=== PATIENT | male | born 1945 | race Caucasian/White ===

== ENCOUNTER → 2016-06-04 | Outpatient (CLI) | payer OTHER ==
[2016-06-04 12:49] LABS: HEMATOCRIT 47.3 % (42-52); MEAN CELL VOLUME 89.6 fL (80-100); MEAN CORPUSCULAR HEMOGLOBIN 30.7 pg (25-34); MEAN CORPUSCULAR HGB CONC 34.2 g/dl (32-36); MEAN PLATELET VOLUME 9.6 fL (7.4-10.4); PLATELET COUNT 248 K/uL (130-400); RED BLOOD COUNT 5.28 M/uL (4.7-6.1); WHITE BLOOD COUNT 6.69 K/uL (4.8-10.8)
[2016-06-04 13:05] LABS: ESTIMATED AVERAGE GLUCOSE 114 mg/dl; HA1C FLAG Normal (Normal)
[2016-06-04 13:19] LABS: ALT/SGPT 25 U/L (12-78); AST/SGOT 16 U/L (15-37); BLOOD UREA NITROGEN 16 mg/dl (7-18); BUN/CREATININE RATIO 14.2 (10-20); CALCIUM 8.8 mg/dl (8.5-10.1); CARBON DIOXIDE 25 mmol/L (21-32); CHLORIDE 108 mmol/L (98-107); GLUCOSE 94 mg/dl (70-99); MAGNESIUM 2.5 mg/dl (1.8-2.4); POTASSIUM 3.9 mmol/L (3.5-5.1); SODIUM 142 mmol/L (136-145)
[2016-06-04 13:26] LABS: ALB/GLOB RATIO 1.3 (0.9-2); ALKALINE PHOSPHATASE 92 U/L (45-117); CHOLESTEROL 204 mg/dl (0-200); CHOLESTEROL/HDL RATIO 4.7; HDL CHOLESTEROL 43 mg/dl; TRIGLYCERIDES 160 mg/dl (0-150); VERY LOW DENSITY LIPOPROT CALC 32 mg/dl
== END | disposition home or self-care (01) ==
LOC: C.LABPBG 08:29
PROVIDERS: ATTEND Internal Medicine Cardiovascular Disease
DX: R07.9 Chest pain, unspecified (principal); I10 Essential (primary) hypertension; E78.5 Hyperlipidemia, unspecified; Z79.899 Other long term (current) drug therapy

== ENCOUNTER → 2016-07-17 | Outpatient (CLI) | payer OTHER ==
[2016-07-17 12:26] LABS: BASO % 0.5 %; BASO ABS # 0.04 K/uL (0-0.2); COMPLETE YES; EOS % 1.9 %; HEMATOCRIT 48.4 % (42-52); IG% 0.3 %; LYMPH % 30.4 %; LYMPH ABS # 2.35 K/uL (1.2-3.4); MEAN CELL VOLUME 91.3 fL (80-100); MEAN CORPUSCULAR HEMOGLOBIN 31.7 pg (25-34); MEAN CORPUSCULAR HGB CONC 34.7 g/dl (32-36); MEAN PLATELET VOLUME 10.5 fL (7.4-10.4); MONO % 6.6 %; NEUT % 60.3 %; PLATELET COUNT 259 K/uL (130-400); WHITE BLOOD COUNT 7.73 K/uL (4.8-10.8)
[2016-07-17 12:33] LABS: PARTIAL THROMBOPLASTIN RATIO 1.1; PROTHROMBIN TIME (PATIENT) 10.7 SECONDS (9.0-12.0)
[2016-07-17 13:05] LABS: BLOOD UREA NITROGEN 17 mg/dl (7-18); BUN/CREATININE RATIO 15.5 (10-20); CALCIUM 9.5 mg/dl (8.5-10.1); CARBON DIOXIDE 27 mmol/L (21-32); CHLORIDE 108 mmol/L (98-107); GLUCOSE 109 mg/dl (70-99); POTASSIUM 4.4 mmol/L (3.5-5.1); SODIUM 142 mmol/L (136-145)
== END | disposition home or self-care (01) ==
LOC: C.LABPBG 09:32
PROVIDERS: ATTEND Internal Medicine Cardiovascular Disease
DX: R07.9 Chest pain, unspecified (principal); R00.2 Palpitations; I10 Essential (primary) hypertension; E78.5 Hyperlipidemia, unspecified; Z79.899 Other long term (current) drug therapy

== ENCOUNTER → 2017-06-12 | Outpatient (CLI) | payer OTHER ==
[2017-06-12 12:29] LABS: HEMATOCRIT 48.1 % (42-52); HEMOGLOBIN 16.5 g/dL (14.0-18.0); MEAN CELL VOLUME 91.4 fL (80-100); MEAN CORPUSCULAR HEMOGLOBIN 31.4 pg (25-34); MEAN CORPUSCULAR HGB CONC 34.3 g/dl (32-36); MEAN PLATELET VOLUME 10.1 fL (7.4-10.4); PLATELET COUNT 253 K/uL (130-400); RED CELL DISTRIBUTION WIDTH CV 13.4 % (11.5-14.5); RED CELL DISTRIBUTION WIDTH SD 44.7 fL (36.4-46.3)
[2017-06-12 13:03] LABS: HEMOGLOBIN A1C 5.7 % (4.5-5.6)
[2017-06-12 13:19] LABS: AST/SGOT 21 U/L (15-37); BLOOD UREA NITROGEN 17 mg/dl (7-18); CALCIUM 9.2 mg/dl (8.5-10.1); CARBON DIOXIDE 26 mmol/L (21-32); CREATININE 1.18 mg/dl (0.60-1.40); GLUCOSE,FASTING 102 mg/dl (70-99); POTASSIUM 4.3 mmol/L (3.5-5.1); SODIUM 139 mmol/L (136-145)
[2017-06-12 13:27] LABS: ALKALINE PHOSPHATASE 93 U/L (45-117); ALT/SGPT 26 U/L (12-78); CHOLESTEROL 222 mg/dl (0-200); LDL CHOLESTEROL (DIRECT) 156 mg/dl; TOTAL PROTEIN 7.5 gm/dl (6.4-8.2)
== END | disposition home or self-care (01) ==
LOC: C.LABPBG 08:04
PROVIDERS: ATTEND Internal Medicine Cardiovascular Disease
DX: Z79.899 Other long term (current) drug therapy (principal); I10 Essential (primary) hypertension; E78.5 Hyperlipidemia, unspecified

== ENCOUNTER 2022-07-10 11:41 | Observation (INO) ==
--- NOTE | 2022-07-10 12:01 | XRay Report ---
XR chest 1V portable HISTORY: 76 years-old Male Chest pain, nonspecific acute chest pain COMPARISON: None TECHNIQUE: AP view of the chest FINDINGS: Cardiac silhouette is enlarged. Prior median sternotomy with cardiac valvular prosthesis and atrial e xclusion device. Left subclavian pacer. No pneumothorax, pleural effusion, airspace consolidation or pulmonary edema. Bones appear grossly intact. IMPRESSION: Cardiomegaly without acute process. ACT 112: Negative or not required by law. The above report was generated using voice recognition software. It may contain grammatical, syntax o r spelling errors. Electronically signed by: Joe Cano M.D. 07/10/2022 12:00 PM
[2022-07-10] MEDS ORDERED: SODIUM CHLORIDE 0.9% 1000ML 1,000 ML IV ONE (12:03)
[2022-07-10 12:26] LABS: Basophils # (auto) 0.07 K/uL (0-0.2); Basophils % (auto) 0.8 %; Eosinophils # (auto) 0.04 K/uL (0-0.50); Eosinophils % (auto) 0.5 %; Hematocrit (blood only) 46.8 % (42.0-52.0); Hemoglobin 15.8 g/dl (14.0-18.0); Immature Granulocytes # (auto) 0.03 K/uL (0.01-0.20); Immature Granulocytes % (auto) 0.3 %; Lymphocytes # (auto) 2.12 K/uL (1.2-3.4); Lymphocytes % (auto) 24.5 %; Mean Corpuscular Hemoglobin 30.6 pg (25.0-34.0); Mean Corpuscular Hgb Conc 33.8 g/dL (32.0-36.0); Mean Corpuscular Volume 90.5 fL (80.0-100.0); Mean Platelet Volume 9.2 fL (9.4-12.4); Monocytes # (auto) 0.47 K/uL (0.11-0.59); Monocytes % (auto) 5.4 %; Neutrophils # (auto) 5.94 K/uL (1.40-6.50); Neutrophils % (auto) 68.5 %; Platelet Count 225 K/uL (130-400); RDW Coefficient of Variation 12.9 % (11.5-14.5); Red Blood Count 5.17 M/uL (4.70-6.10); White Blood Count 8.67 K/ul (4.8-10.8)
[2022-07-10 12:29] LABS: Appearance Urine Clear (Clear); Bilirubin Urine Negative (Negative); Blood Urine Negative (Negative); Color Urine Yellow; Glucose Urine UA Negative (Negative); Ketones Urine Negative (Negative); Leukocyte Esterase Urine Negative (Negative); Nitrite Urine Negative (Negative); Protein Urine Negative (Negative); Specific Gravity Urine 1.007 (1.000-1.030); Urobilinogen Urine Negative (Negative)
[2022-07-10 12:39] LABS: Prothrombin Time 11.1 Seconds (9.0-12.0)
[2022-07-10] MEDS ORDERED: METOPROLOL TARTRATE 1 MG/ML VIAL IV STA ×3 (12:49→14:53)
[2022-07-10 12:55] LABS: Albumin Level 4.5 gm/dl (3.4-5.0); Bilirubin,Total 0.9 mg/dl (0.2-1.0); Calcium 9.7 mg/dl (8.6-10.3); Potassium 4.4 mmol/L (3.5-5.1)
[2022-07-10 13:01] LABS: Albumin Globulin Ratio 1.6 (0.9-2); BUN Creatinine Ratio 13.7 (10-20); Creatinine Clr Calc Pharmacy 52.3 ml/min; Est GFR (Non-African American) 56.1 ml/min; Globulin 2.8 gm/dl (2.5-4.0); Phosphorus 2.1 mg/dl (2.5-4.9); Total Protein 7.3 gm/dl (6.0-8.3)
[2022-07-10 13:05] LABS: Troponin I High Sensitivity 34.3 pg/ml (0-20)
--- NOTE | 2022-07-10 13:53 | Electrocardiogram Report ---
Test Reason : Blood Pressure : / mmHG Vent. Rate : 138 BPM Atrial Rate : 138 BPM P-R Int : 112 ms QRS Dur : 140 ms QT Int : 304 ms P-R-T Axes : 269 -80 087 degrees QTc Int : 460 ms Atrial-sensed ventricular-paced rhythm Abnormal ECG No previous ECGs available Confirmed by Gael Santamaria ([id number]) on 07/10/2022 1:53:34 PM Referred By: Confirmed By:Gael Santamaria
--- NOTE | 2022-07-10 14:43 | Emergency Department Note ---
Impression & Plan Atrial fibrillation with RVR, Pacemaker, Paroxysmal atrial fibrillation ED Provider Note NAME: ASHLEY PEÑA AGE: 76 SEX: M ARRIVES VIA: Ambulance INFORMANT: Patient ED PROVIDER(S): Silvio Holland MD CHIEF COMPLAINT: Fast heart rate, referred PLAN: Disposition: Admit MEDICAL DECISION MAKING: The patient is a pleasant 76-year-old gentleman with a past medical history of paroxysmal atrial fibrillation, complete heart block status post PPM, aortic valve replacement, CAD with history of CABG x3, hypertension, hyperlipidemia who presents to the emergency department via EMS for evaluation of tachycardia referred by his [employer] insurance RN from a well visit today. The patient reports that he recently was told the results of an outpatient echocardiogram which commented on worsening valvular disease and was told that this can be due to hypertension at times. Thus, since then he has been monitoring his blood pressure and in this process noticed that his heart rate was elevated in the 130s. The patient denied any particular symptoms including headache, lightheadedness, changes in vision or hearing, chest pain or shortness of breath. He knew he had a well visit from [facility] in today and so decided to wait until today for reevaluation thinking it would resolve. Otherwise he denies fevers, cough, congestion, GI or symptoms. He reports he feels as though he is hydrating enough. On arrival the patient is well-appearing in no acute distress, afebrile with heart in the 130s, blood pressure 150s/100s and vital signs otherwise stable. He does appear clinically dry. EKG demonstrates atrial sensed, ventricular paced rhythm at 138 with suspicion of underlying atrial fib/flutter. No ectopy, no overt acute ischemia. Chest x- ray negative for acute cardiopulmonary process. WBC, H/H, and platelets within normal limits. Chemistry without metabolic acidosis. Electrolytes and LFTs without significant abnormality. High- sensitivity troponin 34.3 with repeat high-sensitivity troponin 40, essentially unchanged and nonspecific. Lipase is not elevated. TSH within normal limits. UA without evidence of infection. COVID-19 RNA, KENNEY test was negative. Interrogation of the patient's [employer] PPM was completed. I did review the report with the [employer] power plant technician over the phone. Appears the patient is in atrial fibrillation approximately 2% of the time. His tachycardia yesterday and today is consistent with underlying atrial fibrillation with RVR. Otherwise he notes that the patient has approximately 5 years of battery life left with its current settings but could be optimized and extend battery life up to 10 years which can be performed outpatient or inpatient if he is admitted. Upon reevaluation the patient continues deny any symptoms. However his heart rate had only improved to the mid 120s after 5 mg of IV Lopressor x3. Did discuss the patient's current medications with the patient and his son at the bedside. He is unclear about when he may have been taken off of metoprolol but does not recall this medication specifically. He recalls that he was taken off of Eliquis sometime ago which per records appears to be related to the no longer having episodes of atrial fibrillation following left atrial appendage clipping in December 2020. Given the persistence of the patient's RVR despite 3 doses of IV Lopressor and IV fluid hydration the patient and his son agree with plan for admission for further management. Case was discussed with Dr. Pollock, [facility] hospitalist, who will evaluate the patient for admission. Triage Nursing notes reviewed and agree them. Prior/outside medical records reviewed Vital Signs: reviewed Differential diagnosis: Premature contractions, electrolyte abnormality, cardiac dysrhythmia, thyroid dysfunction, pulmonary embolism, infection, gastrointestinal, as well as other pathologies. ER treatment provided: See below. Diagnostics interpreted by me: ECG: Atrial sensed, ventricular paced rhythm at 138 with suspicion of underlying atrial fibs/flutter. No ectopy, no overt acute ischemia. Cardiac Monitoring: An order for continuous cardiac monitoring was placed and demonstrated Atrial sensed, ventricular paced rhythm at 138 with suspicion of underlying atrial fibs/flutter. No ectopy. Laboratory studies: See below Imaging studies: See below Consultation(s): Case was discussed with Dr. Pollock, [facility] hospitalist, who will evaluate the patient for admission. HPI: The patient is a pleasant 76-year-old gentleman with a past medical history of paroxysmal atrial fibrillation, complete heart block status post PPM, aortic valve replacement, CAD with history of CABG x3, hypertension, hyperlipidemia who presents to the emergency department via EMS for evaluation of tachycardia referred by his Addie reed RN from a well visit today. The patient reports that he recently was told the results of an outpatient echocardiogram which commented on worsening valvular disease and was told that this can be due to hypertension at times. Thus, since then he has been monitoring his blood pressure and in this process noticed that his heart rate was elevated in the 130s. The patient denied any particular symptoms including headache, lightheadedness, changes in vision or hearing, chest pain or shortness of breath. He knew he had a well visit from [facility] in today and so decided to wait until today for reevaluation thinking it would resolve. Otherwise he denies fevers, cough, congestion, GI or symptoms. He reports he feels as though he is hydrating enough. ROS: See above HPI for pertinent positives & negatives. A total of 10 systems reviewed and were otherwise negative. VITALS:See Below PHYSICAL EXAMINATION: GENERAL: Awake, alert, well-appearing, in no distress HENT: Normocephalic, atraumatic. Oropharynx with dry mucous membranes and otherwise unremarkable. EYES: Normal conjunctiva. Sclera non-icteric. NECK: Supple. No nuchal rigidity. FROM. No JVD. RESPIRATORY: Clear to auscultation. CARDIAC: Tachycardic rate, regular rhythm. Extremities warm and well perfused. Pulses equal. ABDOMEN: Soft, non-distended. No tenderness to palpation. No rebound or guardin g. No masses. RECTAL: Deferred. MUSCULOSKELETAL: Chest examination reveals no tenderness. The back is symmetrical on inspection without obvious abnormality. There is no CVA tenderness to palpation. No joint edema. LOWER EXTREMITIES: Calves are equal size bilaterally and non-tender. No edema. No discoloration. NEURO: Normal sensorium. No sensory or motor deficits noted. SKIN: No rash or jaundice noted. ED COURSE: Critical Care: I have personally spent greater than 35 minutes of critical care time in the direct management of this patient. This includes bedside care, interpretation of diagnostic studies, and testing, discussion with consultants, patient, and family members, and other required patient management activities. This 35 minutes is in excess of all separately billable procedures. Silvio Holland MD Past Med/Surg History Medical History Aortic stenosis Bicuspid aortic valve History of COPD HTN (hypertension), benign MCI (mild cognitive impairment) Nephrolithiasis Non-occlusive coronary artery disease Pulmonary hypertension, moderate to severe Surgical History History of aortic valve replacement History of back surgery 1989 History of coronary artery bypass graft Hx of abdominal surgery Removal of adhesions on small intestine Hx of heart surgery Cardiac catheterization-2013 S/P cystoscopy With insertion of Ureteral Stent-1984 S/P hernia repair 1964 Family History Father , age 73 Myocardial infarction, Onset Age: 68 Cardiac disorder Hypertension Mother , age 97 Hypertension Breast cancer, Onset Age: 50 Denies family history of Ovarian cancer Prostate cancer Lung cancer Colorectal cancer Social History Smoking Status: Former smoker Tobacco Type: Cigarettes Age Started Using Tobacco: 16; Second Hand Exposure: No; Hx Alcohol Use: Yes Hx Substance Use: No Preferred Language: Japanese Visual Impairment: No Limitations Hearing Ability: Normal Beliefs That Will Affect Care: None marital status: Current Living Situation: Spouse current occupational status: retired Feels Safe at Home: Yes Childhood Exposure to Second-Hand Smoke: No Diet Comment: regular caffeine: Yes during the past year weight has: remained stable Dental Care, Regularly: No Physical Activity Frequency: Daily 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 Seatbelt Use: never Sunscreen Use: No Allergies Allergies Allergy/AdvReac Type Severity Reaction Status Date / Time atorvastatin [From Lipitor] AdvReac Intermediate Myalgia Verified 07/10/22 13:41 pravastatin [From Pravachol] AdvReac Intermediate Myalgia Verified 07/10/22 13:41 rosuvastatin [From Crestor] AdvReac Intermediate Myalgia Verified 07/10/22 13:41 Home Meds Home Medications Medication Instructions Recorded Confirmed diphenhydramine 25 1 tab PO DIRECTED PRN Pain 07/10/22 07/10/22 mg-acetaminophen 500 mg tablet (Tylenol PM Extra Strength) pravastatin 20 mg tablet 20 mg PO DIRECTED 07/10/22 07/10/22 Previous Rx's Medication Instructions Recorded amlodipine 5 mg tablet 5 mg PO DAILY #90 tabs 07/26/21 losartan 100 mg tablet 100 mg PO DAILY #90 tabs 07/26/21 buspirone 10 mg tablet 5 - 10 mg PO TID PRN anxiety #60 12/18/21 tabs Cock-Up Wrist Splint #2 ea 03/25/22 meloxicam 7.5 mg tablet 7.5 mg PO DAILY #30 tabs 06/10/22 Results & Data (ED) Vital Signs Vital Signs - 24 hr 07/10/22 12:11 07/10/22 12:31 07/10/22 11:46 Temperature 36.4 C L 36.4 C L Temperature Source Oral Oral Pulse Rate 137 H 138 H Pulse Rate [Apical] 138 H Respiratory Rate 20 16 20 Respiratory Effort / Characteristics Non-Labored Spontaneous Non-Labored Spontaneous Respiratory Depth Respiratory Pattern Regular Regular Blood Pressure 153/103 H Blood Pressure [Right Arm] 153/103 H Blood Pressure Mean 119 Blood Pressure Mean [Right Arm] 119 Blood Pressure Position [Right Arm] Pulse Oximetry 98 95 96 Oxygen Delivery Method Room Air Room Air Room Air Sepsis Recent Fever Within 48 Hours No Sepsis New/Unexplained Change in Mental Status N/A Sepsis Action Taken by Nursing No Action Required 07/10/22 12:20 07/10/22 12:54 07/10/22 13:23 Temperature Temperature Source Pulse Rate 137 H Pulse Rate [Apical] 139 H 129 H Respiratory Rate 19 15 Respiratory Effort / Characteristics Non-Labored Spontaneous Respiratory Depth Respiratory Pattern Regular Blood Pressure Blood Pressure [Right Arm] 145/110 H 134/101 H Blood Pressure Mean Blood Pressure Mean [Right Arm] 121 112 Blood Pressure Position [Right Arm] Semi-fowlers Semi-fowlers Pulse Oximetry 97 96 Oxygen Delivery Method Room Air Sepsis Recent Fever Within 48 Hours Sepsis New/Unexplained Change in Mental Status Sepsis Action Taken by Nursing 07/10/22 14:15 07/10/22 15:00 07/10/22 16:19 Temperature Temperature Source Pulse Rate 126 H Pulse Rate [Apical] 127 H 126 H Respiratory Rate 16 12 Respiratory Effort / Characteristics Non-Labored Spontaneous Non-Labored Spontaneous Respiratory Depth Normal Respiratory Pattern Regular Blood Pressure Blood Pressure [Right Arm] 136/100 133/100 Blood Pressure Mean Blood Pressure Mean [Right Arm] 112 111 Blood Pressure Position [Right Arm] Semi-fowlers Semi-fowlers Pulse Oximetry 96 93 Oxygen Delivery Method Room Air Room Air Sepsis Recent Fever Within 48 Hours Sepsis New/Unexplained Change in Mental Status Sepsis Action Taken by Nursing Laboratory Data Attestation: I reviewed the patient's lab results. 07/10/22 11:57 07/10/22 11:57 Lab Results 07/10/22 07/10/22 07/10/22 Range/Units 11:57 11:57 11:57 WBC 8.67 (4.8-10.8) K/ul RBC 5.17 (4.70-6.10) M/uL Hgb 15.8 (14.0-18.0) g/dl Hct 46.8 (42.0-52.0) % MCV 90.5 (80.0-100.0) fL MCH 30.6 (25.0-34.0) pg MCHC 33.8 (32.0-36.0) g/dL RDW Std Deviation 43.0 (36.4-46.3) fL RDW Coeff of [place] 12.9 (11.5-14.5) % Plt Count 225 (130-400) K/uL MPV 9.2 L (9.4-12.4) fL Immature Gran % (Auto) 0.3 % Neut % (Auto) 68.5 % Lymph % (Auto) 24.5 % Stevens % (Auto) 5.4 % Eos % (Auto) 0.5 % Baso % (Auto) 0.8 % Neut # (Auto) 5.94 (1.40-6.50) K/uL Lymph # (Auto) 2.12 (1.2-3.4) K/uL Stevens # (Auto) 0.47 (0.11-0.59) K/uL Eos # (Auto) 0.04 (0-0.50) K/uL Baso # (Auto) 0.07 (0-0.2) K/uL Immature Gran # (Auto) 0.03 (0.01-0.20) K/uL PT (9.0-12.0) Seconds INR (0.9-1.1) Sodium 140 (136-145) mmol/L Potassium 4.4 (3.5-5.1) mmol/L Chloride 109 H (98-107) mmol/L Carbon Dioxide 24 (21-32) mmol/L Anion Gap 7 (3-11) BUN 17 (6-23) mg/dl Creatinine 1.24 (0.6-1.4) mg/dl Est Cr Clr Drug Dosing 52.3 ml/min Est GFR ( Amer) 65.0 ml/min Est GFR (Non-Af Amer) 56.1 ml/min BUN/Creatinine Ratio 13.7 (10-20) Glucose 101 H (70-99(Fasting)) mg/dl Calcium 9.7 (8.6-10.3) mg/dl Phosphorus 2.1 L (2.5-4.9) mg/dl Magnesium 2.0 (1.7-2.4) mg/dl Total Bilirubin 0.9 (0.2-1.0) mg/dl AST 21 (13-39) U/L ALT 16 (7-52) U/L Alkaline Phosphatase 89 (34-104) U/L Troponin I High Sens 34.3 H (0-20) pg/ml Total Protein 7.3 (6.0-8.3) gm/dl Albumin 4.5 (3.4-5.0) gm/dl Globulin 2.8 (2.5-4.0) gm/dl Albumin/Globulin Ratio 1.6 (0.9-2) Lipase 56 (11-82) U/L TSH 2.590 (0.300-4.500) uIu/ml Urine Color Urine Appearance (Clear) Urine pH (4.5-7.5) Ur Specific [place] (1.000-1.030) Urine Protein (Negative) Urine Glucose (UA) (Negative) Urine Ketones (Negative) Urine Blood (Negative) Urine Nitrite (Negative) Urine Bilirubin (Negative) Urine Urobilinogen (Negative) Ur Leukocyte Esterase (Negative) SARS-CoV-2, RNA, NAAT (NEGATIVE) 07/10/22 07/10/22 07/10/22 Range/Units 11:57 12:07 12:15 WBC (4.8-10.8) K/ul RBC (4.70-6.10) M/uL Hgb (14.0-18.0) g/dl Hct (42.0-52.0) % MCV (80.0-100.0) fL MCH (25.0-34.0) pg MCHC (32.0-36.0) g/dL RDW Std Deviation (36.4-46.3) fL RDW Coeff of [place] (11.5-14.5) % Plt Count (130-400) K/uL MPV (9.4-12.4) fL Immature Gran % (Auto) % Neut % (Auto) % Lymph % (Auto) % Stevens % (Auto) % Eos % (Auto) % Baso % (Auto) % Neut # (Auto) (1.40-6.50) K/uL Lymph # (Auto) (1.2-3.4) K/uL Stevens # (Auto) (0.11-0.59) K/uL Eos # (Auto) (0-0.50) K/uL Baso # (Auto) (0-0.2) K/uL Immature Gran # (Auto) (0.01-0.20) K/uL PT 11.1 (9.0-12.0) Seconds INR 1.0 (0.9-1.1) Sodium (136-145) mmol/L Potassium (3.5-5.1) mmol/L Chloride (98-107) mmol/L Carbon Dioxide (21-32) mmol/L Anion Gap (3-11) BUN (6-23) mg/dl Creatinine (0.6-1.4) mg/dl Est Cr Clr Drug Dosing ml/min Est GFR ( Amer) ml/min Est GFR (Non-Af Amer) ml/min BUN/Creatinine Ratio (10-20) Glucose (70-99(Fasting)) mg/dl Calcium (8.6-10.3) mg/dl Phosphorus (2.5-4.9) mg/dl Magnesium (1.7-2.4) mg/dl Total Bilirubin (0.2-1.0) mg/dl AST (13-39) U/L ALT (7-52) U/L Alkaline Phosphatase (34-104) U/L Troponin I High Sens (0-20) pg/ml Total Protein (6.0-8.3) gm/dl Albumin (3.4-5.0) gm/dl Globulin (2.5-4.0) gm/dl Albumin/Globulin Ratio (0.9-2) Lipase (11-82) U/L TSH (0.300-4.500) uIu/ml Urine Color Yellow Urine Appearance Clear (Clear) Urine pH 7.0 (4.5-7.5) Ur Specific [place] 1.007 (1.000-1.030) Urine Protein Negative (Negative) Urine Glucose (UA) Negative (Negative) Urine Ketones Negative (Negative) Urine Blood Negative (Negative) Urine Nitrite Negative (Negative) Urine Bilirubin Negative (Negative) Urine Urobilinogen Negative (Negative) Ur Leukocyte Esterase Negative (Negative) SARS-CoV-2, RNA, NAAT NEGATIVE (NEGATIVE) 07/10/22 Range/Units 15:28 WBC (4.8-10.8) K/ul RBC (4.70-6.10) M/uL Hgb (14.0-18.0) g/dl Hct (42.0-52.0) % MCV (80.0-100.0) fL MCH (25.0-34.0) pg MCHC (32.0-36.0) g/dL RDW Std Deviation (36.4-46.3) fL RDW Coeff of [place] (11.5-14.5) % Plt Count (130-400) K/uL MPV (9.4-12.4) fL Immature Gran % (Auto) % Neut % (Auto) % Lymph % (Auto) % Stevens % (Auto) % Eos % (Auto) % Baso % (Auto) % Neut # (Auto) (1.40-6.50) K/uL Lymph # (Auto) (1.2-3.4) K/uL Stevens # (Auto) (0.11-0.59) K/uL Eos # (Auto) (0-0.50) K/uL Baso # (Auto) (0-0.2) K/uL Immature Gran # (Auto) (0.01-0.20) K/uL PT (9.0-12.0) Seconds INR (0.9-1.1) Sodium (136-145) mmol/L Potassium (3.5-5.1) mmol/L Chloride (98-107) mmol/L Carbon Dioxide (21-32) mmol/L Anion Gap (3-11) BUN (6-23) mg/dl Creatinine (0.6-1.4) mg/dl Est Cr Clr Drug Dosing ml/min Est GFR ( Amer) ml/min Est GFR (Non-Af Amer) ml/min BUN/Creatinine Ratio (10-20) Glucose (70-99(Fasting)) mg/dl Calcium (8.6-10.3) mg/dl Phosphorus (2.5-4.9) mg/dl Magnesium (1.7-2.4) mg/dl Total Bilirubin (0.2-1.0) mg/dl AST (13-39) U/L ALT (7-52) U/L Alkaline Phosphatase (34-104) U/L Troponin I High Sens 40.9 H (0-20) pg/ml Total Protein (6.0-8.3) gm/dl Albumin (3.4-5.0) gm/dl Globulin (2.5-4.0) gm/dl Albumin/Globulin Ratio (0.9-2) Lipase (11-82) U/L TSH (0.300-4.500) uIu/ml Urine Color Urine Appearance (Clear) Urine pH (4.5-7.5) Ur Specific [place] (1.000-1.030) Urine Protein (Negative) Urine Glucose (UA) (Negative) Urine Ketones (Negative) Urine Blood (Negative) Urine Nitrite (Negative) Urine Bilirubin (Negative) Urine Urobilinogen (Negative) Ur Leukocyte Esterase (Negative) SARS-CoV-2, RNA, NAAT (NEGATIVE) Administered Medications Discontinued Medications Sodium Chloride (Nss 1000ml) 1,000 mls @ 999 mls/hr IV .[id number] ONE Stop: 07/10/22 13:03 Last Infusion: 07/10/22 13:22 Dose: 0 mls/hr Documented By: Admin: 07/10/22 12:17 Dose: 999 mls/hr Documented By: AB Metoprolol Tartrate (Metoprolol Tartrate 1 Mg/Ml Vial) 5 mg IV NOW STA Stop: 07/10/22 12:50 Last Admin: 07/10/22 12:54 Dose: 5 mg Documented By: Metoprolol Tartrate (Metoprolol Tartrate 1 Mg/Ml Vial) 5 mg IV NOW STA Stop: 07/10/22 14:10 Last Admin: 07/10/22 14:22 Dose: 5 mg Documented By: Metoprolol Tartrate (Metoprolol Tartrate 1 Mg/Ml Vial) 5 mg IV NOW STA Stop: 07/10/22 14:54 Last Admin: 07/10/22 15:10 Dose: 5 mg Documented By: Imaging Data Radiologist's Impression: Chest X-Ray 07/10/22 11:49 XR chest 1V portable HISTORY: 76 years-old Male Chest pain, nonspecific acute chest pain COMPARISON: None TECHNIQUE: AP view of the chest FINDINGS: Cardiac silhouette is enlarged. Prior median sternotomy with cardiac valvular prosthesis and atrial exclusion device. Left subclavian pacer. No pneumothorax, pleural effusion, airspace consolidation or pulmonary edema. Bones appear grossly intact. IMPRESSION: Cardiomegaly without acute process. ACT 112: Negative or not required by law. The above report was generated using voice recognition software. It may contain grammatical, syntax or spelling errors. Electronically signed by: Joe Cano M.D. 07/10/2022 12:00 PM Discharge Plan Visit Data Chief Complaint: Arrhythmia/Palpitations Stated Complaint: PALPITATIONS ED Provider: Silvio Holland Discharge Problem: Atrial fibrillation with RVR, Pacemaker, Paroxysmal atrial fibrillation Forms Stand Alone Forms: [facility] [employer] Prescriptions Prescriptions: No Action buspirone 10 mg tablet 5 - 10 mg PO TID PRN (Reason: anxiety) Qty: 60 2RF meloxicam 7.5 mg tablet 7.5 mg PO DAILY Qty: 30 2RF (DME) Cock-Up Wrist Splint Misc See Rx Instructions .ROUTE .MEDSUPPLY Qty: 2 0RF Rx Instructions: As directed losartan 100 mg tablet 100 mg PO DAILY Qty: 90 3RF amlodipine 5 mg tablet 5 mg PO DAILY Qty: 90 3RF pravastatin 20 mg tablet 20 mg PO DIRECTED Rx Instructions: PER PT "CAN'T TOLERATE TAKING, USE RARELY". diphenhydramine-acetaminophen [Tylenol PM Extra Strength] 25-500 mg Tablet 1 tab PO DIRECTED PRN (Reason: Pain) Referrals Referrals: Israel Lovett MD [Primary Care Provider] -
--- NOTE | 2022-07-10 16:26 | History & Physical Report ---
Date of Service July 10, 2022 Assessment & Plan (1) Atrial fibrillation with RVR: Plan: Afib RVR Atrial sensed ventricular paced rhythm, rate above 140s on admit EKG: Atrial sensed ventricular paced, 138. Device interrogated, consistent with underlying A-fib. Battery only is 5-year life span remaining Slight but inadequate improvement following metoprolol IV timesx3 doses Continue metoprolol 25 mg tartrate twice daily, titrate as needed Inadequate rate control after max IV dosing of metoprolol. start diltiazem drip, patient does not have a history of reduced ejection fraction If BP does not tolerate diltiazem drip/inadequate rate control with Dilt gtt. loaded with digoxin Defer amiodarone 2/2 risk of A-fib VTE, patient is not currently anticoagulated. Did discuss with cardiology, although patient has an atrial clip which reduces risk would still prefer anticoagulation or ANNA if patient needed cardioversion. Cardiology consulted, will see in the morning Patient has not had any chest pain or chest pressure. Troponin is mildly elevated consistent with demand and trended. Recent echo just completed, will defer repeat unless chest pain/uptrending troponin CAD s/p CABG, hypertension - AVR, Aortic Aneurysm Graft Bio-Bentall #25 mm Konect Resilia Aortic Graft/Valve. - CABG x 3 Vessels (WALLACE to LAD, SVG to OM1, SVG to RCA). - Left Atrial Appendage Clipping. No history of stents Metoprolol as noted Continue losartan Amlodipine temporarily held Continue pravastatin. Patient has not tolerated other and high doses/moderate dose statins due to myalgias HTN - Losartan, amlodipine as noted DVT prophylaxis: Anticoagulated Diet: Heart healthy Disposition: PCU CODE STATUS: DNR/DNI, discussed with patient at bedside (2) Paroxysmal atrial fibrillation: (3) CHB (complete heart block): (4) S/P aortic aneurysm repair: (5) S/P CABG x 3: (6) CAD (coronary artery disease): (7) Hyperlipidemia: History of Present Illness Primary Care Provider: Israel Lovett MD Jay is a 76-year-old male with a past medical history of anisocoria, paroxysmal A-fib, heart block, AVR, CABG, hypertension who presents to the emergency department for outpatient echo cardia which showed worsening valvular disease and for which she was referred to the ER Pt reports he got a call from a nurse and was told his ECHO looked good, but va lve was 'swollen a bit maybe from high blood pressure.' [place] his blood pressure was 150s/90, but his heart was going very fast at ~139. Went to bed and got up and hadn't improved, so came in to be seen. No chest pain. No chest pressure. No shortness of breath No syncope/presyncope today, but did felt lightheaded yesterday which improved with walking Does not feel palpitations or his heart racing Was previsouly on Eliquis. Had an atrial appendage clip which was done routinely as part of his valve replacement. He was continued on eliquis after, but was discontinued some time later on cardiology followup. Took for at least 6 months. He has not had any problems with melena, bright red blood per rectum, hematemesis, or epistaxis. Reports that he tolerated the Eliquis well while he was taking it. Hx of neck arthritis and was taking several aspirin a day for pain relief, was advised should not take along with eliquis. Does not think he has been on a beta-carmine, but reports he is not sure and does not recognize the name metoprolol. No recent fever, chills, sweats. No URI symptoms. Medical History: Reviewed Medications: Reviewed Surgical History: Reviewed Family history: Reviewed Allergies: Reviewed Social History: Chew, 1 can q2d, no etoh use Code Status: DNR/DNI Allergies Allergy/AdvReac Type Severity Reaction Status Date / Time atorvastatin [From Lipitor] AdvReac Intermediate Myalgia Verified 07/10/22 13:41 pravastatin [From Pravachol] AdvReac Intermediate Myalgia Verified 07/10/22 13:41 rosuvastatin [From Crestor] AdvReac Intermediate Myalgia Verified 07/10/22 13:41 Home Medications Medication Instructions Recorded Confirmed Type amlodipine 5 mg tablet 5 mg PO DAILY #90 tabs 07/26/21 07/10/22 Rx losartan 100 mg tablet 100 mg PO DAILY #90 tabs 07/26/21 07/10/22 Rx buspirone 10 mg tablet 5 - 10 mg PO TID PRN anxiety #60 12/18/21 07/10/22 Rx tabs Cock-Up Wrist Splint #2 ea 03/25/22 07/10/22 Rx meloxicam 7.5 mg tablet 7.5 mg PO DAILY #30 tabs 06/10/22 07/10/22 Rx diphenhydramine 25 1 tab PO DIRECTED PRN Pain 07/10/22 07/10/22 History mg-acetaminophen 500 mg tablet (Tylenol PM Extra Strength) pravastatin 20 mg tablet 20 mg PO DIRECTED 07/10/22 07/10/22 History Past Med/Surg History Medical History Aortic stenosis Bicuspid aortic valve History of COPD HTN (hypertension), benign MCI (mild cognitive impairment) Nephrolithiasis Non-occlusive coronary artery disease Pulmonary hypertension, moderate to severe Surgical History History of aortic valve replacement History of back surgery History of coronary artery bypass graft Hx of abdominal surgery Hx of heart surgery S/P cystoscopy S/P hernia repair Family History Father Myocardial infarction, Onset Age: 68 Cardiac disorder Hypertension Mother Hypertension Breast cancer, Onset Age: 50 Denies family history of Ovarian cancer Prostate cancer Lung cancer Colorectal cancer Social History Smoking Status: Former smoker Tobacco Type: Cigarettes Age Started Using Tobacco: 16; Second Hand Exposure: No; Hx Alcohol Use: Yes Hx Substance Use: No Preferred Language: Icelandic Visual Impairment: No Limitations Hearing Ability: Normal Beliefs That Will Affect Care: None marital status: Current Living Situation: Spouse current occupational status: retired Feels Safe at Home: Yes Childhood Exposure to Second-Hand Smoke: No Diet Comment: regular caffeine: Yes during the past year weight has: remained stable Dental Care, Regularly: No Physical Activity Frequency: Daily 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 NAD. Cooperative. HEENT: Atraumatic, normocephalic. Baseline pupillary asymmetry, reactive to liight. Vision/hearing intact. Pulm: CTAB A&P. -wheezes, -rales, -rhonchi. Symmetrical chest rise. No increased work of breathing. No respiratory distress. Cardiac: trachycardic, -mrg. Radial pulses intact and symmetrical. Abdominal: Nontender, nondistended, soft. BS present. Ext: Warm/dry. No edema. Results & Data Results & Data Vital Signs (Past 12 Hours) Vital Signs Temp Pulse Pulse Resp BP BP Pulse Ox 07/10/22 15:00 126 H 12 133/100 93 07/10/22 14:15 127 H 16 136/100 96 07/10/22 13:23 129 H 15 134/101 H 96 07/10/22 12:54 139 H 19 145/110 H 97 07/10/22 12:20 137 H 07/10/22 11:46 36.4 C L 138 H 20 153/103 H 96 07/10/22 12:31 137 H 16 95 07/10/22 12:11 36.4 C L 138 H 20 153/103 H 98 O2 Del Method 07/10/22 15:00 Room Air 07/10/22 14:15 Room Air 07/10/22 13:23 Room Air 07/10/22 12:54 07/10/22 12:20 07/10/22 11:46 Room Air 07/10/22 12:31 Room Air 07/10/22 12:11 Room Air PG Care Time/CCT Total # of Minutes Spent Total Time Spent with Patient: Total time spent is greater than 50% in coordination of care (as documented) at patient's floor/unit and/or counseling patient: Coding Level of Care Code 22114 INT INP/OBS CARE 3/75MIN Diagnoses Atrial fibrillation with RVR I48.91 Paroxysmal atrial fibrillation I48.0 CHB (complete heart block) I44.2 S/P aortic aneurysm repair Z98.890; Z86.79 S/P CABG x 3 Z95.1 CAD (coronary artery disease) I25.10 Hyperlipidemia E78.5
[2022-07-10] MEDS ORDERED: Heparin IV Adult Wt-Based Low-Dose WITH Bolus Protocol IV STA (16:54)
[2022-07-10] MEDS ORDERED: STAT IV Infusion **Titration per Protocol STA (16:54)
[2022-07-10] MEDS ORDERED: dilTIAZem HCl 5 MG/ML 5 ML VIAL IV STA (16:54)
[2022-07-10] MEDS ORDERED: dilTIAZem HCL 125 MG in DEXTROSE 5% 100 ML IV SCH (17:00)
[2022-07-10] MEDS ORDERED: HEPARIN SOD (PORCINE) 1000 UNIT/ML IV ONE (17:10)
[2022-07-10] MEDS ORDERED: HEPARIN SODIUM/DEXTROSE 25,000 UNITS/500 ML BAG IV SCH (17:15)
--- NOTE | 2022-07-10 17:16 | Billing Data ---
Date of Service July 10, 2022 Coding Level of Care Code 23295 CRITICAL CARE
[2022-07-10 17:51] LABS: Partial Thromboplastin Time 26.3 Seconds (21.0-31.0)
[2022-07-10] MEDS ORDERED: ACETAMINOPHEN 325 MG TAB PO PRN (19:38)
[2022-07-10] MEDS ORDERED: PRAVASTATIN SOD 20 MG TAB PO SCH (21:00)
[2022-07-10] MEDS: METOPROLOL TARTRATE 25 MG TAB PO SCH (22:32)
[2022-07-11 01:47] LABS: Partial Thromboplastin Time 56.3 Seconds (21.0-31.0)
[2022-07-11 08:06] LABS: Basophils # (auto) 0.08 K/uL (0-0.2); Eosinophils # (auto) 0.16 K/uL (0-0.50); Hematocrit (blood only) 43.1 % (42.0-52.0); Hemoglobin 14.5 g/dl (14.0-18.0); Immature Granulocytes # (auto) 0.03 K/uL (0.01-0.20); Immature Granulocytes % (auto) 0.4 %; Lymphocytes # (auto) 2.66 K/uL (1.2-3.4); Lymphocytes % (auto) 33.5 %; Mean Corpuscular Hemoglobin 30.9 pg (25.0-34.0); Mean Corpuscular Hgb Conc 33.6 g/dL (32.0-36.0); Mean Corpuscular Volume 91.9 fL (80.0-100.0); Monocytes # (auto) 0.54 K/uL (0.11-0.59); Monocytes % (auto) 6.8 %; Neutrophils # (auto) 4.47 K/uL (1.40-6.50); Neutrophils % (auto) 56.3 %; Platelet Count 227 K/uL (130-400); RDW Coefficient of Variation 13.2 % (11.5-14.5); RDW Standard Deviation 44.7 fL (36.4-46.3); Red Blood Count 4.69 M/uL (4.70-6.10); White Blood Count 7.94 K/ul (4.8-10.8)
[2022-07-11] MEDS: METOPROLOL TARTRATE 25 MG TAB PO SCH (08:53)
[2022-07-11] MEDS ORDERED: LOSARTAN POTASSIUM 50 MG TAB PO SCH (09:00)
[2022-07-11 09:10] LABS: Partial Thromboplastin Time 55.2 Seconds (21.0-31.0)
[2022-07-11 10:27] LABS: Calcium 9.5 mg/dl (8.6-10.3); Creatinine Clr Calc Pharmacy 45.4 ml/min; Est GFR (African American) 54.7 ml/min; Est GFR (Non-African American) 47.2 ml/min; Potassium 4.2 mmol/L (3.5-5.1)
--- NOTE | 2022-07-11 13:06 | Cardiology Consultation ---
Date of Consultation July 11, 2022 Assessment & Plan (1) Paroxysmal atrial tachycardia: -Dr. Sewell interrogated the device this morning and noted a paroxysmal atrial tachycardia. -the maximum tracking rate was reduced to avoid rapid ventricular pacing. -pacing outputs were also decreased to conserve battery life. -no evidence of atrial fibrillation or flutter. (2) Paroxysmal atrial fibrillation: -as above, interrogation today failed to show atrial fibrillation or flutter. (3) CAD (coronary artery disease): -s/p CABG x3 as noted above. -continue medical management. (4) S/P AVR (aortic valve replacement): -proper function on recent echocardiogram. (5) Pacemaker: -placed for complete heart block which developed following thoracic surgery. -proper function on today's interrogation. History of Present Illness Attending Physician: Salima Roldan MD History of Present Illness Mr. Field is a 76-year-old male admitted yesterday with an atrial dysrhythmia. This consultation was ordered to assistance cardiac management. Of note, the patient is well known to me from the outpatient setting. The patient was in his usual state of health until the day of presentation. He was being evaluated by and [facility] nurse who noted his heart rate to be elevated to 410320 beats per minute. He was sent to the emergency room following that evaluation. At no time has the patient experience palpitations. He further denies chest discomfort and dyspnea. His cardiac history began back in December 2020 when he underwent a 3 vessel bypass which included an WALLACE to the LAD, SVG to the RCA, and SVG to OM1. He also had placement of a 20. 5 bioprosthetic AVR and ascending aortic graft. The left atrial appendage was also clipped at that time. One month later, the patient developed complete heart block and had a [employer] DDD pacemaker placed. He has done well from a cardiac perspective since that time. He underwent an echocardiogram on July 04 which showed normal left ventricular systolic function with ejection fraction 55-60%. There is moderate LVH and a properly functioning bioprosthetic aortic valve. This was unchanged from study performed in April 2019. Currently, patient is resting comfortably in bed without complaints. Past medical and surgical history 1. Coronary artery disease 2. CABG x3-see above, December 2020 3. Bioprosthetic aortic valve/aortic graft-December 2020, #25 4. Left atrial appendage clip-December 2020 5. DDD pacemaker-January 2021, complete heart block, [employer] 6. Hypertension 7. Moderate LVH 8. Hypercholesterolemia 9. Paroxysmal atrial fibrillation 10. Cerebrovascular disease 11. COPD 12. Nephrolithiasis Social history and lives with his Uses 1 can of tobacco every other day No alcohol Family history Father had an AR at age 68 Mother had breast cancer in her 50s Review of systems A 10 review systems was undertaken and negative except that described above. Allergies Allergy/AdvReac Type Severity Reaction Status Date / Time atorvastatin [From Lipitor] AdvReac Intermediate Myalgia Verified 07/10/22 13:41 pravastatin [From Pravachol] AdvReac Intermediate Myalgia Verified 07/10/22 13:41 rosuvastatin [From Crestor] AdvReac Intermediate Myalgia Verified 07/10/22 13:41 Home Medications Medication Instructions Recorded Confirmed Type amlodipine 5 mg tablet 5 mg PO DAILY #90 tabs 07/26/21 07/10/22 Rx losartan 100 mg tablet 100 mg PO DAILY #90 tabs 07/26/21 07/10/22 Rx buspirone 10 mg tablet 5 - 10 mg PO TID PRN anxiety #60 12/18/21 07/10/22 Rx tabs Cock-Up Wrist Splint #2 ea 03/25/22 07/10/22 Rx meloxicam 7.5 mg tablet 7.5 mg PO DAILY #30 tabs 06/10/22 07/10/22 Rx diphenhydramine 25 1 tab PO DIRECTED PRN Pain 07/10/22 07/10/22 History mg-acetaminophen 500 mg tablet (Tylenol PM Extra Strength) pravastatin 20 mg tablet 20 mg PO DIRECTED 07/10/22 07/10/22 History Patient History Medical History Aortic stenosis Bicuspid aortic valve History of COPD HTN (hypertension), benign MCI (mild cognitive impairment) Nephrolithiasis Non-occlusive coronary artery disease Pulmonary hypertension, moderate to severe Surgical History History of aortic valve replacement History of back surgery 1989 History of coronary artery bypass graft Hx of abdominal surgery Removal of adhesions on small intestine Hx of heart surgery Cardiac catheterization-2014 S/P cystoscopy With insertion of Ureteral Stent-1984 S/P hernia repair 1964 Family History Father , age 73 Myocardial infarction, Onset Age: 68 Cardiac disorder Hypertension Mother , age 97 Hypertension Breast cancer, Onset Age: 50 Denies family history of Ovarian cancer Prostate cancer Lung cancer Colorectal cancer Social History Smoking Status: Never smoker Tobacco Type: Cigarettes Age Started Using Tobacco: 16; Second Hand Exposure: No; Do You Dip or Chew Tobacco: Yes; Tobacco Cessation Education Requested by Patient: No Hx Alcohol Use: Yes Alcohol type: beer Hx Substance Use: No Preferred Language: Chadian Communication Ability: Effective Visual Impairment: No Limitations Hearing Ability: Normal Cafe [employer] Restaurant [employer] Required: No Beliefs That Will Affect Care: None marital status: Current Living Situation: Alone Current Living Situation Comment: home alone current occupational status: retired Other Information That Helps Us Care for You: No Feels Safe at Home: Yes Safety Concerns: Feels Safe At This Time Childhood Exposure to Second-Hand Smoke: No Diet Comment: regular caffeine: Yes during the past year weight has: remained stable Dental Care, Regularly: No Physical Activity Frequency: Daily 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 HEENT exam is negative. Neck is supple with full carotid upstrokes. No carotid bruits. Jugular venous pressure is flat at 90. There is no thyromegaly. Cardiovascular exam reveals a regular rhythm with normal S1-S2. Heart sounds are distant. No obvious murmurs. Chest reveals a palpable pacemaker in left subclavicular region. Lungs are clear without rales, rhonchi or wheezes. Abdomen is soft without bruits. Extremities reveal intact radial artery pulses bilaterally. There is no peripheral edema. Results & Data Vital Signs (Past 12 Hours) Vital Signs Temp Pulse Resp BP Pulse Ox O2 Del Method O2 Flow Rate 07/11/22 11:24 36.8 C 70 18 106/63 95 Nasal Cannula 2 07/11/22 08:33 36.6 C 75 18 114/70 94 Room Air 07/11/22 03:45 36.6 C 70 16 100/63 96 Room Air Laboratory Results CBC notes hemoglobin of 14.5, crit 43.1, white count 7.9, platelet of [id number]. Electrolytes note a sodium of 140, potassium 4.4, chloride 109, bicarb 24, BUN 17, creatinine 1.24, glucose of 101. Initial high sensitivity troponin was 34.3 with follow-up values of 40.9, 46.3, 59.9, and 47.3. Diagnostic Findings EKG notes sinus tachycardia with ventricular pacing. Echocardiogram performed on July 04 noted normal systolic function with ejection fraction 55-60%. There is moderate LVH and a properly functioning bioprosthetic aortic valve. This was unchanged when compared with study done in April 2019. Chest x-ray shows cardiomegaly and a permanent pacemaker in place. PG Care Time/CCT Total # of Minutes Spent Total Time Spent with Patient: Total time spent is greater than 50% in coordination of care (as documented) at patient's floor/unit and/or counseling patient: Coding Level of Care Code 31841 INT INP/OBS CARE 3/75MIN Diagnoses Paroxysmal atrial tachycardia I47.1 Paroxysmal atrial fibrillation I48.0 CAD (coronary artery disease) I25.10 S/P AVR (aortic valve replacement) Z95.2 Pacemaker Z95.0
--- NOTE | 2022-07-11 13:48 | Discharge Summary ---
Date of Service July 11, 2022 Admission HPI Per Admitting Provider Jay is a 76-year-old male with a past medical history of anisocoria, paroxysmal A-fib, heart block, AVR, CABG, hypertension who presents to the emergency department for outpatient echo cardia which showed worsening valvular disease and for which she was referred to the ER Pt reports he got a call from a nurse and was told his ECHO looked good, but valve was 'swollen a bit maybe from high blood pressure.' [place] his blood pressure was 150s/90, but his heart was going very fast at ~139. Went to bed and got up and hadn't improved, so came in to be seen. No chest pain. No chest pressure. No shortness of breath No syncope/presyncope today, but did felt lightheaded yesterday which improved with walking Does not feel palpitations or his heart racing Was previsouly on Eliquis. Had an atrial appendage clip which was done routinely as part of his valve replacement. He was continued on eliquis after, but was discontinued some time later on cardiology followup. Took for at least 6 months. He has not had any problems with melena, bright red blood per rectum, hematemesis, or epistaxis. Reports that he tolerated the Eliquis well while he was taking it. Hx of neck arthritis and was taking several aspirin a day for pain relief, was advised should not take along with eliquis. Does not think he has been on a beta-carmine, but reports he is not sure and does not recognize the name metoprolol. No recent fever, chills, sweats. No URI symptoms. Medical History: Reviewed Medications: Reviewed Surgical History: Reviewed Family history: Reviewed Allergies: Reviewed Social History: Chew, 1 can q2d, no etoh use Code Status: DNR/DNI Principal Diagnosis Atrial tachycardia Discharge Exam Constitutional WD/WN, vitals as above Respiratory normal respiratory effort, lungs clear to auscultation Cardiovascular RRR, no murmur, no edema Gastrointestinal (Abdomen) normal bowel sounds, soft, nontender, no hepatosplenomegaly Psychiatric A+Ox3, euthymic affect Discharge Data Allergies Allergy/AdvReac Type Severity Reaction Status Date / Time atorvastatin [From Lipitor] AdvReac Intermediate Myalgia Verified 07/10/22 13:41 pravastatin [From Pravachol] AdvReac Intermediate Myalgia Verified 07/10/22 13:41 rosuvastatin [From Crestor] AdvReac Intermediate Myalgia Verified 07/10/22 13:41 Consultations 07/10/22 16:00 ED Decision to Admit Stat 07/11/22 09:00 Consult Cardiology Routine Hospital Course (1) Paroxysmal atrial tachycardia: Atrial sensed ventricular paced rhythm, rate above 140s on admit EKG: Atrial sensed ventricular paced, 138. Device interrogated by EP and thought to be atrial tachycardia and NOT afib. No anticoagulation necessary He broke to a NSR on his own started metoprolol 25mg po bid-continue on discharge serial trop mildly elevated in 40s consistent with demand ischemia from AT, not ACS Seen by Cardiology and had adjustments made to pacer to avoid this tachycardia in future f/u with Cardiology in 2-3 weeks as planned dc to home (2) Paroxysmal atrial fibrillation: none recurrent no AC needed (3) CHB (complete heart block): has pacer in place (4) S/P aortic aneurysm repair: (5) CAD (coronary artery disease): CAD s/p CABG - AVR, Aortic Aneurysm Graft Bio-Bentall #25 mm Konect Resilia Aortic Graft/Valve. - CABG x 3 Vessels (WALLACE to LAD, SVG to OM1, SVG to RCA). - Left Atrial Appendage Clipping. No history of stents Metoprolol as noted Continue losartan Continue pravastatin. Patient has not tolerated other and high doses/moderate dose statins due to myalgias (6) Hyperlipidemia: staitn (7) HTN (hypertension), benign: HTN - Losartan, amlodipine as noted, BPs better Plan Dispo-dc to home Discussed care with Dr. Sewell and Dr. Santamaria of Cardiology Total Time Total Time Spent Total Time Spent (In Minutes): 40 min Discharge Plan Discharge Items Patient Disposition: Home - Self-Care Reason For Visit: AFIB RVR Discharge Diagnosis: Atrial tachycardia Condition on Discharge: Good Activity: Resume your previous activity Non-emergency contact: Primary Care Provider and [employer] Call non-emergency contact if: you have any medication questions and your symptoms worsen Follow-up/Referrals: Israel Lovett MD [Primary Care Provider] - 07/22/22 11:00 am () Gael Santamaria MD [Physician] - 07/25/22 11:00 am (Please keep your previously scheduled appointment with Dr. Santamaria in July.) Diet: Heart Healthy Addtl Attending Provider Instructions: You were admitted with a rapid heart beat which initially was thought to be atrial fibrillation, but was later determined to be atrial tachycardia. This went away on its own and the [employer] made some adjustments to your pacemaker to keep this from happening again. You can take your blood pressure and heart rate once daily or every other day to monitor for recurrence. If you develop chest pain, shortness of breath, lightheadedness, or any other acute concern, please return to the hospital. You can call the [employer]'s office first if the symptoms are mild. You do NOT need to be on a blood thinner (Eliquis) for the atrial tachycardia. You were started on a medication called metoprolol to help slow down the rate of your heart. This medication is also beneficial for those with known heart disease. Pending Studies at Discharge: No Stand-Alone Forms: My [facility] [place], Smoking Cessation Medications and DC Order Prescriptions: New metoprolol tartrate 25 mg tablet 25 mg PO BID Qty: 60 0RF Continued buspirone 10 mg tablet 5 - 10 mg PO TID PRN (Reason: anxiety) Qty: 60 2RF meloxicam 7.5 mg tablet 7.5 mg PO DAILY Qty: 30 2RF (DME) Cock-Up Wrist Splint Misc See Rx Instructions .ROUTE .MEDSUPPLY Qty: 2 0RF Rx Instructions: As directed losartan 100 mg tablet 100 mg PO DAILY Qty: 90 3RF amlodipine 5 mg tablet 5 mg PO DAILY Qty: 90 3RF pravastatin 20 mg tablet 20 mg PO DIRECTED Rx Instructions: PER PT "CAN'T TOLERATE TAKING, USE RARELY". diphenhydramine-acetaminophen [Tylenol PM Extra Strength] 25-500 mg Tablet 1 tab PO DIRECTED PRN (Reason: Pain) Discharge Orders: Discharge Order (Routine); Ordered 07/11/22 Ordered By: Salima Roldan Admission Data Admit Date/Time: 07/10/22 17:14 Attending Provider: Salima Roldan Admit Provider: Israel Pollock Primary Care Provider: Israel Lovett Other Providers: Israel Pollock ; Gael Santamaria Coding Level of Care Code 66444 INP/OBS DISCH >30 MIN Diagnoses Paroxysmal atrial tachycardia I47.1 Paroxysmal atrial fibrillation I48.0 CHB (complete heart block) I44.2 S/P aortic aneurysm repair Z98.890; Z86.79 CAD (coronary artery disease) I25.10 Hyperlipidemia E78.5 HTN (hypertension), benign I10
== END 2022-07-11 14:23 | disposition home or self-care (01) ==
LOC: ED 11:41 → 2S 17:14 → SUATTDRO 17:14 → INTOOBSV 17:14 → 2S 17:40

== ENCOUNTER 2024-01-26 21:39 | Observation (INO) ==
[2024-01-26 22:11] LABS: Basophils # (auto) 0.07 K/uL (0.00-0.20); Basophils % (auto) 0.8 %; Eosinophils # (auto) 0.14 K/uL (0.00-0.50); Eosinophils % (auto) 1.5 %; Hematocrit (blood only) 48.9 % (42.0-52.0); Hemoglobin 16.1 g/dl (14.0-18.0); Immature Granulocytes # (auto) 0.03 K/uL (0.01-0.20); Immature Granulocytes % (auto) 0.3 %; Lymphocytes # (auto) 2.29 K/uL (1.20-3.40); Lymphocytes % (auto) 24.9 %; Mean Corpuscular Hgb Conc 32.9 g/dL (32.0-36.0); Mean Corpuscular Volume 94.2 fL (80.0-100.0); Mean Platelet Volume 9.7 fL (9.4-12.4); Monocytes # (auto) 0.96 K/uL (0.11-0.59); Monocytes % (auto) 10.5 %; Neutrophils # (auto) 5.69 K/uL (1.40-6.50); Platelet Count 229 K/uL (130-400); RDW Standard Deviation 44.8 fL (36.4-46.3); Red Blood Count 5.19 M/uL (4.70-6.10); White Blood Count 9.18 K/ul (4.8-10.8)
--- NOTE | 2024-01-26 22:19 | Emergency Department Note ---
History of Present Illness General Chief complaint: Cardiac Assessment Stated complaint: CHEST DISCOMFORT, PALPITATIONS Time Seen by Provider: 01/26/24 21:40 History of Present Illness This 78-year-old male presents ER complaining cold symptoms for the past few days who felt like his heart was racing today. He has a history of A-fib and a flutter. He is on Eliquis. He has extensive cardiac disease and follows with the [facility] and here locally with Lucinda Serna. Patient denies chest pain, abdominal pain, leg pain or swelling, headache, neck stiffness. No history of heart failure. No documented temperature. Home Medications Medication Instructions Recorded Confirmed Type diphenhydramine 25 1 tab PO DIRECTED PRN Pain 07/10/22 01/26/24 History mg-acetaminophen 500 mg tablet (Tylenol PM Extra Strength) vit C 250 mg-vit E 90 mg-zinc 40 1 tab PO BID 11/12/22 01/26/24 History mg-copper 1 [id number] capsule (PreserVision AREDS-2) apixaban 5 mg tablet (Eliquis) 5 mg PO Q12H #180 tabs 07/30/23 01/26/24 Rx losartan 100 mg tablet 100 mg PO QAM #90 tabs 09/15/23 01/26/24 Rx fluticasone furoate 200 1 inh inhalation QAM #60 ea 10/13/23 01/26/24 Rx mcg-vilanterol 25 mcg/dose inhalation powder (Breo Ellipta) meloxicam 7.5 mg tablet 7.5 mg PO QAM #90 tabs 10/13/23 01/26/24 Rx diltiazem HCl 180 mg 180 mg PO QAM #90 caps 10/14/23 01/26/24 Rx capsule,extended release 24 hr metoprolol tartrate 25 mg tablet 50 mg PO BID 01/26/24 01/26/24 History Allergies Allergy/AdvReac Type Severity Reaction Status Date / Time atorvastatin [From Lipitor] AdvReac Intermediate Myalgia Verified 01/26/24 23:27 pravastatin [From Pravachol] AdvReac Intermediate Myalgia Verified 01/26/24 23:27 rosuvastatin [From Crestor] AdvReac Intermediate Myalgia Verified 01/26/24 23:27 Past Med/Surg History Problem List Elevated troponin (Acute) Tachycardia (Acute) Atrial flutter with controlled response Colon cancer screening Statin intolerance (Chronic) Constipation (Chronic) Hyperlipidemia (Chronic) CAD (coronary artery disease) Ascending aortic aneurysm CHB (complete heart block) Paroxysmal atrial fibrillation (Acute) Chronic anticoagulation Impaired glucose metabolism Myalgia Arthralgia Headache Cervical spondylosis Unequal pupils COVID-19 Arthritis, multiple joint involvement Carpal tunnel syndrome Paroxysmal atrial tachycardia Pacemaker (Acute) Post-Operative CHB s/p [employer] Accolade MRI Dual Chamber Pacemaker 01/17/21 S/P CABG x 3 history of a Bicuspid Aortic Valve with Moderately Severe with Ascending Aortic Aneurysm s/p Bio-Bentall #25 mm Konect Resilia Aortic Graft/Valve, CAD s/p CABG x 3 Vessels (WALLACE to LAD, SVG to OM1, SVG to RCA) and Left Atrial Appendage Clipping 01/10/[address] [facility] S/P AVR (aortic valve replacement) history of a Bicuspid Aortic Valve with Moderately Severe with Ascending Aortic Aneurysm s/p Bio-Bentall #25 mm Konect Resilia Aortic Graft/Valve, CAD s/p CABG x 3 Vessels (WALLACE to LAD, SVG to OM1, SVG to RCA) and Left Atrial Appendage Clipping 01/10/[address] [facility] S/P aortic aneurysm repair history of a Bicuspid Aortic Valve with Moderately Severe with Ascending Aortic Aneurysm s/p Bio-Bentall #25 mm Konect Resilia Aortic Graft/Valve, CAD s/p CABG x 3 Vessels (WALLACE to LAD, SVG to OM1, SVG to RCA) and Left Atrial Appendage Clipping 01/10/[address] [facility] MCI (mild cognitive impairment) (Chronic) HTN (hypertension), benign (Chronic) Aortic stenosis (Chronic) Bicuspid aortic valve (Chronic) Non-occlusive coronary artery disease (Chronic) Medical History History of anesthesia reaction difficulty waking History of kidney stones History of COVID-19 x2--last 2020--mild symptoms, no symptoms now Macular degeneration Transient ischemic attack (TIA) pt states over 20yrs ago--no deficits History of COPD inhaler daily Nephrolithiasis Pulmonary hypertension, moderate to severe Surgical History History of colonoscopy History of esophagogastroduodenoscopy (EGD) History of tooth extraction History of tonsillectomy History of cardiac cath Cardiac catheterization-2014 @ [place]--no stents placed History of pacemaker Post-Operative CHB s/p [employer] Accolade MRI Dual Chamber Pacemaker 01/17/21 H/O carpal tunnel repair bilateral S/P hernia repair 1964 S/P cystoscopy With insertion of Ureteral Stent-1984 History of back surgery 1989 Hx of abdominal surgery Removal of adhesions on small intestine Family History Father , age 73 Cardiac disorder Myocardial infarction, Onset Age: 68 Hypertension Mother , age 97 Breast cancer, Onset Age: 50 Hypertension Other No family history of adverse response to anesthesia Denies family history of Ovarian cancer Prostate cancer Lung cancer Colorectal cancer Social History Smoking Status: Former smoker Tobacco Type: Cigarettes Age Started Using Tobacco: 16; Second Hand Exposure: No; Do You Dip or Chew Tobacco: Yes (chews (advised on policy)); Hx Alcohol Use: Yes Alcohol type: beer Hx Substance Use: No Preferred Language: Albanian Communication Ability: Effective Visual Impairment: No Limitations Hearing Ability: Normal Radiagraph Operator Required: No Beliefs That Will Affect Care: None marital status: Current Living Situation: Alone current occupational status: retired Feels Safe at Home: Yes Childhood Exposure to Second-Hand Smoke: No Diet: regular Diet Comment: regular caffeine: Yes during the past year weight has: remained stable Dental Care, Regularly: No Physical Activity Frequency: Daily 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 Seatbelt Use: never Sunscreen Use: No Assistive Devices: Denture - Upper, Denture - Lower and Glasses Review of Systems A total of 10 systems reviewed and were otherwise negative Physical Exam Vital Signs Vital Signs - 24 hr 01/26/24 21:42 01/26/24 21:42 01/26/24 21:43 Temperature 36.6 C Temperature Source Oral Pulse Rate 122 H 121 H Pulse Rate from SpO2 Sensor Pulse Rhythm Regular Pulse Strength Strong Respiratory Rate 18 Respiratory Effort / Characteristics Non-Labored Spontaneous Non-Labored Respiratory Depth Normal Normal Respiratory Pattern Regular Blood Pressure 136/99 Blood Pressure Mean 111 Blood Pressure Position Sitting Pulse Oximetry 97 Oxygen Delivery Method Room Air Room Air Sepsis Recent Fever Within 48 Hours No Sepsis New/Unexplained Change in Mental Status No Sepsis Action Taken by Nursing No Action Required 01/26/24 21:45 01/26/24 21:45 01/26/24 21:45 Temperature Temperature Source Pulse Rate 118 H Pulse Rate from SpO2 Sensor 120 H Pulse Rhythm Pulse Strength Respiratory Rate 16 Respiratory Effort / Characteristics Respiratory Depth Respiratory Pattern Blood Pressure 136/99 136/99 Blood Pressure Mean 112 112 Blood Pressure Position Pulse Oximetry 96 Oxygen Delivery Method Sepsis Recent Fever Within 48 Hours Sepsis New/Unexplained Change in Mental Status Sepsis Action Taken by Nursing 01/26/24 21:48 01/26/24 21:53 01/26/24 21:53 Temperature Temperature Source Pulse Rate 122 H Pulse Rate from SpO2 Sensor 123 H Pulse Rhythm Pulse Strength Respiratory Rate 19 Respiratory Effort / Characteristics Respiratory Depth Respiratory Pattern Blood Pressure 137/104 H 137/104 H Blood Pressure Mean 107 107 Blood Pressure Position Pulse Oximetry 96 Oxygen Delivery Method Sepsis Recent Fever Within 48 Hours Sepsis New/Unexplained Change in Mental Status Sepsis Action Taken by Nursing 01/26/24 21:53 01/26/24 22:00 01/26/24 22:00 Temperature Temperature Source Pulse Rate Pulse Rate from SpO2 Sensor Pulse Rhythm Pulse Strength Respiratory Rate Respiratory Effort / Characteristics Respiratory Depth Respiratory Pattern Blood Pressure 137/104 H 137/96 137/96 Blood Pressure Mean 107 109 109 Blood Pressure Position Pulse Oximetry Oxygen Delivery Method Sepsis Recent Fever Within 48 Hours Sepsis New/Unexplained Change in Mental Status Sepsis Action Taken by Nursing 01/26/24 22:00 01/26/24 22:00 01/26/24 22:33 Temperature Temperature Source Pulse Rate 119 H 120 H Pulse Rate from SpO2 Sensor 119 H 119 H Pulse Rhythm Pulse Strength Respiratory Rate 23 19 Respiratory Effort / Characteristics Respiratory Depth Respiratory Pattern Blood Pressure 137/96 Blood Pressure Mean 109 Blood Pressure Position Pulse Oximetry 96 94 Oxygen Delivery Method Sepsis Recent Fever Within 48 Hours Sepsis New/Unexplained Change in Mental Status Sepsis Action Taken by Nursing 01/26/24 22:56 01/26/24 22:56 01/26/24 22:56 Temperature Temperature Source Pulse Rate Pulse Rate from SpO2 Sensor Pulse Rhythm Pulse Strength Respiratory Rate Respiratory Effort / Characteristics Respiratory Depth Respiratory Pattern Blood Pressure 138/103 H 138/103 H 138/103 H Blood Pressure Mean 105 105 105 Blood Pressure Position Pulse Oximetry Oxygen Delivery Method Sepsis Recent Fever Within 48 Hours Sepsis New/Unexplained Change in Mental Status Sepsis Action Taken by Nursing 01/26/24 23:00 01/26/24 23:00 01/26/24 23:00 Temperature Temperature Source Pulse Rate 122 H Pulse Rate from SpO2 Sensor 121 H Pulse Rhythm Pulse Strength Respiratory Rate 18 Respiratory Effort / Characteristics Respiratory Depth Respiratory Pattern Blood Pressure 125/87 125/87 Blood Pressure Mean 100 100 Blood Pressure Position Pulse Oximetry 93 Oxygen Delivery Method Sepsis Recent Fever Within 48 Hours Sepsis New/Unexplained Change in Mental Status Sepsis Action Taken by Nursing 01/26/24 23:00 01/26/24 23:01 01/26/24 23:04 Temperature 36.6 C Temperature Source Oral Pulse Rate 122 H Pulse Rate from SpO2 Sensor Pulse Rhythm Pulse Strength Respiratory Rate 18 Respiratory Effort / Characteristics Non-Labored Respiratory Depth Normal Respiratory Pattern Regular Blood Pressure 125/87 125/87 Blood Pressure Mean 100 Blood Pressure Position Pulse Oximetry 93 Oxygen Delivery Method Room Air Sepsis Recent Fever Within 48 Hours Sepsis New/Unexplained Change in Mental Status Sepsis Action Taken by Nursing 01/26/24 23:27 01/26/24 23:27 01/26/24 23:27 Temperature Temperature Source Pulse Rate 120 H 118 H Pulse Rate from SpO2 Sensor 118 H Pulse Rhythm Pulse Strength Respiratory Rate 23 Respiratory Effort / Characteristics Respiratory Depth Respiratory Pattern Blood Pressure 128/103 H 128/103 H Blood Pressure Mean 110 Blood Pressure Position Pulse Oximetry 95 Oxygen Delivery Method Sepsis Recent Fever Within 48 Hours Sepsis New/Unexplained Change in Mental Status Sepsis Action Taken by Nursing 01/26/24 23:33 01/26/24 23:48 01/26/24 23:49 Temperature Temperature Source Pulse Rate 120 H 120 H 121 H Pulse Rate from SpO2 Sensor 124 H 121 H Pulse Rhythm Pulse Strength Respiratory Rate 19 25 H Respiratory Effort / Characteristics Respiratory Depth Respiratory Pattern Blood Pressure 155/126 H Blood Pressure Mean Blood Pressure Position Pulse Oximetry 95 95 Oxygen Delivery Method Sepsis Recent Fever Within 48 Hours Sepsis New/Unexplained Change in Mental Status Sepsis Action Taken by Nursing 01/27/24 00:01 01/27/24 00:01 Temperature Temperature Source Pulse Rate Pulse Rate from SpO2 Sensor Pulse Rhythm Pulse Strength Respiratory Rate Respiratory Effort / Characteristics Respiratory Depth Respiratory Pattern Blood Pressure 104/84 104/84 Blood Pressure Mean 89 89 Blood Pressure Position Pulse Oximetry Oxygen Delivery Method Sepsis Recent Fever Within 48 Hours Sepsis New/Unexplained Change in Mental Status Sepsis Action Taken by Nursing VITALS: Vitals are noted on the nurse's note and reviewed by myself. Vital signs mildly tachycardic. GENERAL: Pleasant elderly male, in no acute distress, nondiaphoretic, well- developed well-nourished. SKIN: The skin was without rashes, erythema, edema, or bruising. There is no tenting of the skin. Capillary reflex less than 2 seconds. HEAD: Normocephalic atraumatic. EARS: External auditory canals clear EYES: Pupils equal round and reactive to light and accommodation. Conjunctivae without injection, sclerae without icterus. Extraocular movements intact. NOSE: Patent, no discharge. MOUTH: Mucous membranes mildly dry. Pharynx without erythema or exudate. Uvula midline. Airway patent. Tongue does not deviate. NECK: Supple without nuchal rigidity. No lymphadenopathy. No thyromegaly. Cervical spine is nontender. No JVD. HEART: Mildly tachycardic rate and rhythm LUNGS: Clear to auscultation bilaterally without wheezes, rales or rhonchi. No retractions or accessory muscle use. ABDOMEN: Positive bowel sounds x 4. Normal tympanic percussion. Soft, nontender, without masses or organomegaly. Mobley sign negative. No guarding or rebound tenderness. No CVA tenderness MUSCULOSKELETAL: No muscle atrophy, erythema, or edema noted. NEURO: Patient was alert and oriented to person place and time. Normal sensation to light and sharp touch. No focal neurological deficits. Course Administered Medications Discontinued Medications Sodium Chloride (Nss) 500 mls @ 999 mls/hr IV .Q31M ONE Stop: 01/26/24 22:32 Last Infusion: 01/26/24 23:02 Dose: Infused Documented By: Admin: 01/26/24 22:23 Dose: 999 mls/hr Documented By: FÉLIX Acetaminophen (Ofirmev) 1,000 mg in 100 mls @ 400 mls/hr IV NOW STA Stop: 01/26/24 23:37 Last Infusion: 01/27/24 00:05 Dose: Infused Documented By: Admin: 01/26/24 23:49 Dose: 400 mls/hr Documented By: FÉLIX Metoprolol Tartrate (Metoprolol Tartrate 1 Mg/Ml Vial) 2.5 mg IV NOW STA Stop: 01/26/24 22:59 Last Admin: 01/26/24 23:04 Dose: 2.5 mg Documented By: FÉLIX Metoprolol Tartrate (Metoprolol Tartrate 1 Mg/Ml Vial) 5 mg IV NOW STA Stop: 01/26/24 23:18 Last Admin: 01/26/24 23:49 Dose: 5 mg Documented By: FÉLIX Medical Decision Making Medical Records Attestation: I reviewed the patient's medical records. Home Medications Current Medication List: was personally reviewed by me Laboratory Data Attestation: I reviewed the patient's lab results. 01/26/24 21:43 01/26/24 22:17 Lab Results 01/26/24 01/26/24 01/26/24 Range/Units 21:43 22:17 Unknown WBC 9.18 (4.8-10.8) K/ul RBC 5.19 (4.70-6.10) M/uL Hgb 16.1 (14.0-18.0) g/dl Hct 48.9 (42.0-52.0) % MCV 94.2 (80.0-100.0) fL MCH 31.0 (25.0-34.0) pg MCHC 32.9 (32.0-36.0) g/dL RDW Std Deviation 44.8 (36.4-46.3) fL RDW Coeff of [place] 13.0 (11.5-14.5) % Plt Count 229 (130-400) K/uL MPV 9.7 (9.4-12.4) fL Immature Gran % (Auto) 0.3 % Neut % (Auto) 62.0 % Lymph % (Auto) 24.9 % [place] % (Auto) 10.5 % Eos % (Auto) 1.5 % Baso % (Auto) 0.8 % Neut # (Auto) 5.69 (1.40-6.50) K/uL Lymph # (Auto) 2.29 (1.20-3.40) K/uL [place] # (Auto) 0.96 H (0.11-0.59) K/uL Eos # (Auto) 0.14 (0.00-0.50) K/uL Baso # (Auto) 0.07 (0.00-0.20) K/uL Immature Gran # (Auto) 0.03 (0.01-0.20) K/uL Sodium 138 (136-145) mmol/L Potassium 4.3 (3.5-5.1) mmol/L Chloride 108 H (98-107) mmol/L Carbon Dioxide 22 (21-32) mmol/L Anion Gap 8 (3-11) BUN 20 (6-23) mg/dl Creatinine 1.31 (0.6-1.4) mg/dl Est Cr Clr Drug Dosing 52.1 ml/min eGFR 55.72 BUN/Creatinine Ratio 15.3 (10-20) Glucose 84 (70-99(Fasting)) mg/dl Lactate 0.9 (0.4-2.0) mmol/L Calcium 9.6 (8.6-10.3) mg/dl Magnesium 2.3 (1.7-2.4) mg/dl Total Bilirubin 0.9 (0.2-1.0) mg/dl Direct Bilirubin 0.2 (0-0.2) mg/dl AST 20 (13-39) U/L ALT 14 (7-52) U/L Alkaline Phosphatase 83 (34-104) U/L Troponin I High Sens 48.3 H (0-20) pg/ml B-Natriuretic Peptide 639 H (0-100) pg/ml Total Protein 6.9 (6.0-8.3) gm/dl Albumin 4.3 (3.4-5.0) gm/dl Procalcitonin 0.04 (0-0.5) ng/ml Urine Color Yellow Urine Appearance Clear (Clear) Urine pH 6.0 (4.5-7.5) Ur Specific [place] 1.008 (1.000-1.030) Urine Protein Negative (Negative) Urine Glucose (UA) Negative (Negative) Urine Ketones Negative (Negative) Urine Blood Negative (Negative) Urine Nitrite Negative (Negative) Urine Bilirubin Negative (Negative) Urine Urobilinogen Negative (Negative) Ur Leukocyte Esterase Negative (Negative) Adenovirus (PCR) Not Detected (NotDetected) B. pertussis DNA (PCR) Not Detected (NotDetected) B.parapertussis DNA PCR Not Detected (NotDetected) C. pneumoniae DNA (PCR) Not Detected (NotDetected) Coronavirus OC43 (PCR) Not Detected (NotDetected) Coronavirus HKU1 (PCR) Not Detected (NotDetected) Coronavirus 229E (PCR) Not Detected (NotDetected) SARS-CoV-2 (PCR) Not Detected (NotDetected) Coronavirus NL63 (PCR) Not Detected (NotDetected) Human Metapneumovir PCR Not Detected (NotDetected) Influenza Type A (PCR) Not Detected (NotDetected) Influenza Type B (PCR) Not Detected (NotDetected) M. pneumoniae (PCR) Not Detected (NotDetected) Parainfluenza 1 (PCR) Not Detected (NotDetected) Parainfluenza 2 (PCR) Not Detected (NotDetected) Parainfluenza 3 (PCR) Not Detected (NotDetected) Parainfluenza 4 (PCR) Not Detected (NotDetected) RSV (PCR) Not Detected (NotDetected) Entero/Rhino (PCR) Not Detected (NotDetected) Imaging Data Attestation: I personally reviewed and interpreted this imaging study as follows: MDM Narrative Prior records/ancillary studies reviewed and summarized above. Nursing notes reviewed. Additional history obtained from EMS. The patient's history was concerning for cold symptoms on racing heart. Differential diagnosis: Etiologies such as metabolic, infection, A-fib, a flutter, sepsis, bacteremia, hypo/hyperglycemia, electrolyte abnormalities, cardiac sources, intracerebral event, toxicologic, neurologic, as well as others were entertained. Physical examination: As above. ER treatment provided: IV Lock An order was placed for continuous cardiac monitoring. The monitor shows a rate of 60-1 30 with a sinus rhythm per my interpretation. IV fluids, Lopressor IV was ordered On reassessment the patient felt better. Diagnostics interpretation by me: ECG: Ordered for tachycardia EKG: Paced rhythm with no Sgarbossa rate of 119. Impression paced rhythm independently interpreted by myself The labs Independently Interpreted by myself revealed mildly elevated troponin. Elevated BNP Imaging studies: Chest x-ray with no acute consolidation, pneumothorax or free air per my independent or potation Consultation: A consultation was placed with the hospitalist. The case was discussed and diagnostics were reviewed. The patient was evaluated in the ER for further treatment. Exam and history seem consistent with tachycardia that could be related to A- fib. Patient was in the 110-120. He is paced. Initial troponin is minimally elevated. Medicine was consulted and the case is discussed. He will be evaluated for admission. Patient is agreeable. By the evaluation outlined above emergent etiologies such as infection, electrolyte abnormalities, intracerebral event, toxologic, neurologic, abnormalities blood glucose, metabolic, as well as others were deemed relatively unlikely. The pt informed about the findings as listed above. All questions were answered and pleased with the treatment. The chart was completed utilizing [employer] Speech voice recognition software. Grammatical errors, random word insertions, pronoun errors, and incomplete sentences are an occassional consequence of this system due to software limitations, ambient noise, and hardware issues. Any formal questions or concerns about the content, text, or information contained within the body of this dictation should be directly addressed to the physician security assistant for clarification. Impression & Plan Tachycardia, Elevated troponin Discharge Plan Visit Data Chief Complaint: Cardiac Assessment Stated Complaint: CHEST DISCOMFORT, PALPITATIONS ED Provider: Corinne Fritz ED Midlevel Provider: Prachi Rojas Discharge Problem: Tachycardia, Elevated troponin Patient Disposition: Admitted As Inpatient Condition: Fair Discharge Instructions Interventions: ED Discharge Assessment Last Done: 01/27/24 00:11 Forms Stand Alone Forms: [employer] [facility] Load [employer] Prescriptions Prescriptions: No Action losartan 100 mg tablet 100 mg PO QAM Qty: 90 3RF meloxicam 7.5 mg tablet 7.5 mg PO QAM Qty: 90 1RF fluticasone furoate-vilanterol [Breo Ellipta] 200-25 mcg/dose blister with device 1 inh INHALATION QAM Qty: 60 2RF diltiazem HCl 180 mg capsule,extended release 24hr 180 mg PO QAM Qty: 90 3RF Eliquis 5 mg tablet 5 mg PO Q12H Qty: 180 3RF diphenhydramine-acetaminophen [Tylenol PM Extra Strength] 25-500 mg Tablet 1 tab PO DIRECTED PRN (Reason: Pain) PreserVision AREDS-2 250-90-40-1 mg Capsule 1 tab PO BID metoprolol tartrate 25 mg tablet 50 mg PO BID Referrals Referrals: Levi Carbone CRNP [Primary Care Provider] -
[2024-01-26] MEDS: SODIUM CHLORIDE 0.9% 500 ML IV ONE (22:23)
[2024-01-26 22:35] LABS: Appearance Urine Clear (Clear); Bilirubin Urine Negative (Negative); Blood Urine Negative (Negative); Color Urine Yellow; Glucose Urine UA Negative (Negative); Ketones Urine Negative (Negative); Leukocyte Esterase Urine Negative (Negative); Nitrite Urine Negative (Negative); Protein Urine Negative (Negative); Specific Gravity Urine 1.008 (1.000-1.030); Urobilinogen Urine Negative (Negative)
[2024-01-26 22:55] LABS: Albumin Level 4.3 gm/dl (3.4-5.0); BUN Creatinine Ratio 15.3 (10-20); Bilirubin Direct 0.2 mg/dl (0-0.2); Bilirubin,Total 0.9 mg/dl (0.2-1.0); Calcium 9.6 mg/dl (8.6-10.3); Creatinine Clr Calc Pharmacy 52.1 ml/min; Magnesium 2.3 mg/dl (1.7-2.4); Potassium 4.3 mmol/L (3.5-5.1); Total Protein 6.9 gm/dl (6.0-8.3)
[2024-01-26 23:01] LABS: Troponin I High Sensitivity 48.3 pg/ml (0-20)
[2024-01-26 23:02] LABS: Adenovirus PCR Not Detected (NotDetected); Bordetella parapertussis PCR Not Detected (NotDetected); Bordetella pertussis PCR Not Detected (NotDetected); Chlamydia pneumoniae PCR Not Detected (NotDetected); Coronavirus 229E PCR Not Detected (NotDetected); Coronavirus CoV-2 (COVID19)PCR Not Detected (NotDetected); Coronavirus HKU1 PCR Not Detected (NotDetected); Coronavirus NL63 PCR Not Detected (NotDetected); Coronavirus OC43PCR Not Detected (NotDetected); Human Metapneumovirus PCR Not Detected (NotDetected); Influenza A PCR Not Detected (NotDetected); Influenza B PCR Not Detected (NotDetected); Mycoplasma pneumoniae PCR Not Detected (NotDetected); Parainfluenza Virus 1 PCR Not Detected (NotDetected); Parainfluenza Virus 2 PCR Not Detected (NotDetected); Parainfluenza Virus 3 PCR Not Detected (NotDetected); Parainfluenza Virus 4 PCR Not Detected (NotDetected); Respiratory Syncytial VirusPCR Not Detected (NotDetected); Rhinovirus/Enterovirus PCR Not Detected (NotDetected)
[2024-01-26] MEDS: METOPROLOL TARTRATE 1 MG/ML VIAL IV STA ×2 (23:04→23:49)
[2024-01-26] MEDS: ACETAMINOPHEN 1,000 MG/100 ML VIAL IV STA (23:49)
--- NOTE | 2024-01-26 23:52 | History & Physical Report ---
Date of Service January 26, 2024 Assessment & Plan (1) Tachycardia: Plan: 78yo male presenting with palpitations and tachycardia ongoing since 08:00 today. Patient with history of bicuspid aortic valve, ascending aortic aneurysm s/p repair, CAD s/p CABG x 3V in 2020, CHB and AF post-operatively s/p dual chamber pacemaker placement. He has had ongoing atrial arrhythmias - AT/AF - most recently noted last week, able to be controlled with pacemaker. Patient reports compliance with his home medications including his Eliquis, Metoprolol and Diltiazem. ?Atrial flutter today on EKG - minimal response with IVF, Metoprolol IV. Electrolytes are WNL. -Admit to PCU -Monitor hear rate - consider Diltiazem bolus with possible drip for additional rate control -Continue Eliquis 5mg po BID -Continue PO Metoprolol and Diltiazem -Records requested from [facility] - patient recently seen there, had an echocardiogram performed -Pacer interrogation -Cardiology consultation appreciated (2) Elevated troponin: Plan: Patient with elevation of troponin at 48.3. Has had similar values in the past. He denies chest pain. Does admit to increased eructation over the last few days. -Telemetry monitoring -Trend troponin -Cardiology consultation as above (3) CAD (coronary artery disease): Plan: Patient with CAD s/p 3V CABG in 2020. He follows with Cardiology through [facility] as well as [facility]. -Continue Eliquis -Continue Metoprolol -Continue Losartan -Patient is statin intolerant History of Present Illness Chief Complaint: palpitations Primary Care Provider: ROSS Cotton Jay Field is a 78yo male with history of bicuspid aortic valve with severe aortic stenosis, moderate CAD s/p graft and valve repair and CABG x 3V performed in 2020. Patient with post-operative complete heart block and atrial fibrillation s/p placement of dual chamber pacer 01/17/21. Patient with frequent atrial tachycardia/atrial fibrillation. He is on Eliquis anticoagulation. He follows at [facility] as well as with [facility]. He was last seen at [facility] on 01/22/24 - noted to be in atrial fibrillation/flutter. He was to have a cardioversion performed but rather was able to be paced out of his AF. At that time his medication was changed from Metoprolol 25mg po TID to Metoprolol 50mg po BID. He reports compliance with his medications - no missed doses recently. Patient has had some cough and congestion ongoing for the last several days. This morning around 08:00 he felt that his heart was racing and his head felt " funny". He checked his heart rate and it was noted to be 120 - 130's consistently throughout the day. Patient reports similar symptoms occurring approximately one month ago which self-terminated. Patient has had some chills and cough productive for sputum in the morning. Otherwise he denies fever, chest pain, dizziness, syncope/near syncope, edema, orthopnea or weight gain. He denies nausea, vomiting, diarrhea. Does have some abdominal pain mainly in the mornings. Patient additionally reports increased eructation over the last several days. In the ER he is afebrile, tachycardic with HR 120's. Blood pressure has been stable ER Course: Tylenol 1gm Metoprolol 2.5mg IV + 5mg IV NSS x 500mL Allergies Allergy/AdvReac Type Severity Reaction Status Date / Time atorvastatin [From Lipitor] AdvReac Intermediate Myalgia Verified 01/26/24 23:27 pravastatin [From Pravachol] AdvReac Intermediate Myalgia Verified 01/26/24 23:27 rosuvastatin [From Crestor] AdvReac Intermediate Myalgia Verified 01/26/24 23:27 Home Medications Medication Instructions Recorded Confirmed Type diphenhydramine 25 1 tab PO DIRECTED PRN Pain 07/10/22 01/26/24 History mg-acetaminophen 500 mg tablet (Tylenol PM Extra Strength) vit C 250 mg-vit E 90 mg-zinc 40 1 tab PO BID 11/12/22 01/26/24 History mg-copper 1 [id number] capsule (PreserVision AREDS-2) apixaban 5 mg tablet (Eliquis) 5 mg PO Q12H #180 tabs 07/30/23 01/26/24 Rx losartan 100 mg tablet 100 mg PO QAM #90 tabs 09/15/23 01/26/24 Rx fluticasone furoate 200 1 inh inhalation QAM #60 ea 10/13/23 01/26/24 Rx mcg-vilanterol 25 mcg/dose inhalation powder (Breo Ellipta) meloxicam 7.5 mg tablet 7.5 mg PO QAM #90 tabs 10/13/23 01/26/24 Rx diltiazem HCl 180 mg 180 mg PO QAM #90 caps 10/14/23 01/26/24 Rx capsule,extended release 24 hr metoprolol tartrate 25 mg tablet 50 mg PO BID 01/26/24 01/26/24 History Past Med/Surg History Problem List Elevated troponin (Acute) Tachycardia (Acute) Atrial flutter with controlled response Colon cancer screening Statin intolerance (Chronic) Constipation (Chronic) Hyperlipidemia (Chronic) CAD (coronary artery disease) Ascending aortic aneurysm CHB (complete heart block) Paroxysmal atrial fibrillation (Acute) Chronic anticoagulation Impaired glucose metabolism Myalgia Arthralgia Headache Cervical spondylosis Unequal pupils COVID-19 Arthritis, multiple joint involvement Carpal tunnel syndrome Paroxysmal atrial tachycardia Pacemaker (Acute) Post-Operative CHB s/p [employer] Accolade MRI Dual Chamber Pacemaker 01/17/21 S/P CABG x 3 history of a Bicuspid Aortic Valve with Moderately Severe with Ascending Aortic Aneurysm s/p Bio-[place]ent[place] #25 mm Konect Resilia Aortic Graft/Valve, CAD s/p CABG x 3 Vessels (WALLACE to LAD, SVG to OM1, SVG to RCA) and Left Atrial Appendage Clipping 01/10/2021 at [facility] S/P AVR (aortic valve replacement) history of a Bicuspid Aortic Valve with Moderately Severe with Ascending Aortic Aneurysm s/p Bio-[place]entall #25 mm Konect Resilia Aortic Graft/Valve, CAD s/p CABG x 3 Vessels (WALLACE to LAD, SVG to OM1, SVG to RCA) and Left Atrial Appendage Clipping 01/10/2021 at [facility] S/P aortic aneurysm repair history of a Bicuspid Aortic Valve with Moderately Severe with Ascending Aortic Aneurysm s/p Bio-[place]entall #25 mm Konect Resilia Aortic Graft/Valve, CAD s/p CABG x 3 Vessels (WALLACE to LAD, SVG to OM1, SVG to RCA) and Left Atrial Appendage Clipping 01/10/2021 at [facility] MCI (mild cognitive impairment) (Chronic) HTN (hypertension), benign (Chronic) Aortic stenosis (Chronic) Bicuspid aortic valve (Chronic) Non-occlusive coronary artery disease (Chronic) Medical History History of anesthesia reaction difficulty waking History of kidney stones History of COVID-19 x2--last 2020--mild symptoms, no symptoms now Macular degeneration Transient ischemic attack (TIA) pt states over 20yrs ago--no deficits History of COPD inhaler daily Nephrolithiasis Pulmonary hypertension, moderate to severe Surgical History History of colonoscopy History of esophagogastroduodenoscopy (EGD) History of tooth extraction History of tonsillectomy History of cardiac cath Cardiac catheterization-2013 @ [place]--no stents placed History of pacemaker Post-Operative CHB s/p [employer] Accolade MRI Dual Chamber Pacemaker 01/17/21 H/O carpal tunnel repair bilateral S/P hernia repair 1964 S/P cystoscopy With insertion of Ureteral Stent-1984 History of back surgery 1989 Hx of abdominal surgery Removal of adhesions on small intestine Family History Father , age 73 Cardiac disorder Myocardial infarction, Onset Age: 68 Hypertension Mother , age 97 Breast cancer, Onset Age: 50 Hypertension Other No family history of adverse response to anesthesia Denies family history of Ovarian cancer Prostate cancer Lung cancer Colorectal cancer Social History Smoking Status: Former smoker Tobacco Type: Cigarettes Age Started Using Tobacco: 16; Second Hand Exposure: No; Do You Dip or Chew Tobacco: Yes (chews (advised on policy)); Hx Alcohol Use: Yes Alcohol type: beer Hx Substance Use: No Preferred Language: Nigerian Communication Ability: Effective Visual Impairment: No Limitations Hearing Ability: Normal Microfilmer Required: No Beliefs That Will Affect Care: None marital status: Current Living Situation: Alone current occupational status: retired Feels Safe at Home: Yes Childhood Exposure to Second-Hand Smoke: No Diet: regular Diet Comment: regular caffeine: Yes during the past year weight has: remained stable Dental Care, Regularly: No Physical Activity Frequency: Daily 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 Seatbelt Use: never Sunscreen Use: No Assistive Devices: Denture - Upper, Denture - Lower and Glasses Review of Systems Review of Systems: All systems reviewed & are unremarkable except as noted in HPI & below Physical Exam Physical Exam: General: patient resting comfortably, NAD, non-toxic in appearance, AA&O x 4 Skin: warm, dry, intact, no rashes or lesions HEENT: NC/AT, PERRL, EOMI, anicteric sclera, conjunctiva without injection, external ear normal to inspection and nontender, nares patent, moist mucus membranes, dentition intact, no oropharyngeal lesions, neck supple, trachea midline, no LAD, no thyromegaly, no JVD Heart: +S1/S2, fairly regular, tachycardic, no m/r/g Lungs: equal air entry bilaterally, crackles present in right base Abd: +BS, soft, NT/ND, no masses/organomegaly/ascites Ext: warm, 2+ pulses in UE/LE bilaterally, no clubbing/cyanosis or edema Neuro: nonfocal, patient AA&O x 4, speech intact, no facial droop, moving all extremities on command with equal strength 5/5 Results & Data Results & Data Vital Signs (Past 12 Hours) Vital Signs Temp Pulse Resp BP Pulse Ox O2 Del Method 01/26/24 23:49 121 H 155/126 H 01/26/24 23:33 120 H 19 95 01/26/24 23:27 118 H 23 95 01/26/24 23:27 128/103 H 01/26/24 23:27 120 H 128/103 H 01/26/24 23:04 122 H 125/87 01/26/24 23:01 36.6 C 18 93 Room Air 01/26/24 23:00 125/87 01/26/24 23:00 125/87 01/26/24 23:00 125/87 01/26/24 23:00 122 H 18 93 01/26/24 22:56 138/103 H 01/26/24 22:56 138/103 H 01/26/24 22:56 138/103 H 01/26/24 22:33 120 H 19 94 01/26/24 22:00 119 H 23 96 01/26/24 22:00 137/96 01/26/24 22:00 137/96 01/26/24 22:00 137/96 01/26/24 21:53 137/104 H 01/26/24 21:53 137/104 H 01/26/24 21:53 137/104 H 01/26/24 21:48 122 H 19 96 01/26/24 21:45 136/99 01/26/24 21:45 136/99 01/26/24 21:45 118 H 16 96 01/26/24 21:43 121 H 01/26/24 21:42 36.6 C 122 H 18 136/99 97 Room Air 01/26/24 21:42 Room Air Laboratory Results Laboratory Results WBC 9.18 K/ul (4.8-10.8) 01/26/24 21:43 RBC 5.19 M/uL (4.70-6.10) 01/26/24 21:43 Hgb 16.1 g/dl (14.0-18.0) 01/26/24 21:43 Hct 48.9 % (42.0-52.0) 01/26/24 21:43 MCV 94.2 fL (80.0-100.0) 01/26/24 21:43 MCH 31.0 pg (25.0-34.0) 01/26/24 21:43 MCHC 32.9 g/dL (32.0-36.0) 01/26/24 21:43 RDW Std Deviation 44.8 fL (36.4-46.3) 01/26/24 21:43 RDW Coeff of [place] 13.0 % (11.5-14.5) 01/26/24 21:43 Plt Count 229 K/uL (130-400) 01/26/24 21:43 MPV 9.7 fL (9.4-12.4) 01/26/24 21:43 Immature Gran % (Auto) 0.3 % 01/26/24 21:43 Neut % (Auto) 62.0 % 01/26/24 21:43 Lymph % (Auto) 24.9 % 01/26/24 21:43 [place] % (Auto) 10.5 % 01/26/24 21:43 Eos % (Auto) 1.5 % 01/26/24 21:43 Baso % (Auto) 0.8 % 01/26/24 21:43 Neut # (Auto) 5.69 K/uL (1.40-6.50) 01/26/24 21:43 Lymph # (Auto) 2.29 K/uL (1.20-3.40) 01/26/24 21:43 [place] # (Auto) 0.96 K/uL (0.11-0.59) H 01/26/24 21:43 Eos # (Auto) 0.14 K/uL (0.00-0.50) 01/26/24 21:43 Baso # (Auto) 0.07 K/uL (0.00-0.20) 01/26/24 21:43 Immature Gran # (Auto) 0.03 K/uL (0.01-0.20) 01/26/24 21:43 Sodium 138 mmol/L (136-145) 01/26/24 22:17 Potassium 4.3 mmol/L (3.5-5.1) 01/26/24 22:17 Chloride 108 mmol/L (98-107) H 01/26/24 22:17 Carbon Dioxide 22 mmol/L (21-32) 01/26/24 22:17 Anion Gap 8 (3-11) 01/26/24 22:17 BUN 20 mg/dl (6-23) 01/26/24 22:17 Creatinine 1.31 mg/dl (0.6-1.4) 01/26/24 22:17 Est Cr Clr Drug Dosing 52.1 ml/min 01/26/24 22:17 eGFR 55.72 01/26/24 22:17 BUN/Creatinine Ratio 15.3 (10-20) 01/26/24 22:17 Glucose 84 mg/dl (70-99(Fasting)) 01/26/24 22:17 Lactate 0.9 mmol/L (0.4-2.0) 01/26/24 22:17 Calcium 9.6 mg/dl (8.6-10.3) 01/26/24 22:17 Magnesium 2.3 mg/dl (1.7-2.4) 01/26/24 22:17 Total Bilirubin 0.9 mg/dl (0.2-1.0) 01/26/24 22:17 Direct Bilirubin 0.2 mg/dl (0-0.2) 01/26/24 22:17 AST 20 U/L (13-39) 01/26/24 22:17 ALT 14 U/L (7-52) 01/26/24 22:17 Alkaline Phosphatase 83 U/L (34-104) 01/26/24 22:17 Troponin I High Sens 48.3 pg/ml (0-20) H 01/26/24 22:17 B-Natriuretic Peptide 639 pg/ml (0-100) H 01/26/24 21:43 Total Protein 6.9 gm/dl (6.0-8.3) 01/26/24 22:17 Albumin 4.3 gm/dl (3.4-5.0) 01/26/24 22:17 Procalcitonin 0.04 ng/ml (0-0.5) 01/26/24 21:43 Urine Color Yellow 01/26/24 Unknown Urine Appearance Clear (Clear) 01/26/24 Unknown Urine pH 6.0 (4.5-7.5) 01/26/24 Unknown Ur Specific [place] 1.008 (1.000-1.030) 01/26/24 Unknown Urine Protein Negative (Negative) 01/26/24 Unknown Urine Glucose (UA) Negative (Negative) 01/26/24 Unknown Urine Ketones Negative (Negative) 01/26/24 Unknown Urine Blood Negative (Negative) 01/26/24 Unknown Urine Nitrite Negative (Negative) 01/26/24 Unknown Urine Bilirubin Negative (Negative) 01/26/24 Unknown Urine Urobilinogen Negative (Negative) 01/26/24 Unknown Ur Leukocyte Esterase Negative (Negative) 01/26/24 Unknown Adenovirus (PCR) Not Detected (NotDetected) 01/26/24 21:43 B. pertussis DNA (PCR) Not Detected (NotDetected) 01/26/24 21:43 B.parapertussis DNA PCR Not Detected (NotDetected) 01/26/24 21:43 C. pneumoniae DNA (PCR) Not Detected (NotDetected) 01/26/24 21:43 Coronavirus OC43 (PCR) Not Detected (NotDetected) 01/26/24 21:43 Coronavirus HKU1 (PCR) Not Detected (NotDetected) 01/26/24 21:43 Coronavirus 229E (PCR) Not Detected (NotDetected) 01/26/24 21:43 SARS-CoV-2 (PCR) Not Detected (NotDetected) 01/26/24 21:43 Coronavirus NL63 (PCR) Not Detected (NotDetected) 01/26/24 21:43 Human Metapneumovir PCR Not Detected (NotDetected) 01/26/24 21:43 Influenza Type A (PCR) Not Detected (NotDetected) 01/26/24 21:43 Influenza Type B (PCR) Not Detected (NotDetected) 01/26/24 21:43 M. pneumoniae (PCR) Not Detected (NotDetected) 01/26/24 21:43 Parainfluenza 1 (PCR) Not Detected (NotDetected) 01/26/24 21:43 Parainfluenza 2 (PCR) Not Detected (NotDetected) 01/26/24 21:43 Parainfluenza 3 (PCR) Not Detected (NotDetected) 01/26/24 21:43 Parainfluenza 4 (PCR) Not Detected (NotDetected) 01/26/24 21:43 RSV (PCR) Not Detected (NotDetected) 01/26/24 21:43 Entero/Rhino (PCR) Not Detected (NotDetected) 01/26/24 21:43 Diagnostic Findings CXR per my interpretation with cardiomegaly on portable film, sternotomy wires in place, dual chamber pacer in place, additional devices noted - likely cardiac valve and JACQUE clip, no obvious infiltrate or edema. Similar to prior. ECG Additional Comments: EKG with ventricular paced rhythm, slightly irregular when measured with calipers. HEK=[id number]. No acute ischemic changes. PG Care Time/CCT Total # of Minutes Spent Total Time Spent with Patient: Total time spent is greater than 50% in coordination of care (as documented) at patient's floor/unit and/or counseling patient: Coding Level of Care Code 70522 INT INP/OBS CARE 3/75MIN Diagnoses Tachycardia R00.0 Elevated troponin R79.89 Coronary artery disease involving [place] coronary artery of [place] heart without angina pectoris I25.10 Associated angina: without angina Coronary Disease-Associated Artery/Lesion type: [place] artery [place] vs. transplanted heart: [place] heart (3) CAD (coronary artery disease) Associated angina: without angina Coronary Disease-Associated Artery/Lesion type: [place] artery [place] vs. transplanted heart: [place] heart Qualified Code(s): I25.10 - Atherosclerotic heart disease of [place] coronary artery without angina pectoris
--- NOTE | 2024-01-27 00:12 | Emergency Department Note ---
ED Visit Note I was consulted by the Advanced Practice Provider. I personally made/approved the management plan and take responsibility for the patient management. I performed a substantive portion of the visit. This includes the aspects of: -History/Physical -MDM .
[2024-01-27] MEDS ORDERED: ACETAMINOPHEN 325 MG TAB PO PRN (00:36)
[2024-01-27] MEDS: dilTIAZem HCL 180 MG CAPCR PO STA (05:22)
[2024-01-27] MEDS: dilTIAZem HCl 5 MG/ML 5 ML VIAL IV STA (05:59)
[2024-01-27] MEDS: METOPROLOL TARTRATE 1 MG/ML VIAL IV STA (06:25)
[2024-01-27 07:48] LABS: Hematocrit (blood only) 45.8 % (42.0-52.0); Hemoglobin 15.2 g/dl (14.0-18.0); Mean Corpuscular Hemoglobin 30.8 pg (25.0-34.0); Mean Corpuscular Hgb Conc 33.2 g/dL (32.0-36.0); Mean Corpuscular Volume 92.9 fL (80.0-100.0); Mean Platelet Volume 9.7 fL (9.4-12.4); Platelet Count 209 K/uL (130-400); RDW Coefficient of Variation 13.2 % (11.5-14.5); RDW Standard Deviation 44.6 fL (36.4-46.3); Red Blood Count 4.93 M/uL (4.70-6.10)
[2024-01-27 07:58] LABS: BUN Creatinine Ratio 16.3 (10-20); Calcium 9.4 mg/dl (8.6-10.3); Creatinine Clr Calc Pharmacy 51.1 ml/min; Potassium 4.1 mmol/L (3.5-5.1)
--- NOTE | 2024-01-27 07:59 | XRay Report ---
XR chest 1V portable CLINICAL HISTORY: cough/cp TECHNIQUE: Single frontal radiograph of the chest was obtained. Comparison: Comparison is made to chest radiograph 07/10/2022 FINDINGS: Lines and tubes are stable. Cardiomegaly is noted. The lungs are clear. No evidence of pleural effusi on or pneumothorax. IMPRESSION: No acute chest disease. Cardiomegaly is noted. ACT 112: Negative or not required by law. Electronically signed by: Geoffrey Bower M.D. 01/27/2024 7:58 AM
--- NOTE | 2024-01-27 08:46 | Electrocardiogram Report ---
Test Reason : Blood Pressure : */* mmHG Vent. Rate : 119 BPM Atrial Rate : 144 BPM P-R Int : * ms QRS Dur : 152 ms QT Int : 380 ms P-R-T Axes : * -86 78 degrees QTcB Int : 534 ms Ventricular-paced rhythm (probable aflutter as atrial rhythm) Abnormal ECG When compared with ECG of 10-Jul-2022 11:51, Vent. rate has decreased by 19 bpm Confirmed by Maxim Ivory ([id number]) on 01/27/2024 8:46:28 AM Referred By: Confirmed By: Maxim Ivory
--- NOTE | 2024-01-27 08:47 | Electrocardiogram Report ---
Test Reason : Blood Pressure : */* mmHG Vent. Rate : 119 BPM Atrial Rate : 136 BPM P-R Int : * ms QRS Dur : 156 ms QT Int : 388 ms P-R-T Axes : * -88 72 degrees QTcB Int : 545 ms Ventricular-paced rhythm (probable aflutter as atrial rhythm) Abnormal ECG When compared with ECG of 26-Jan-2024 21:43, No significant change was found Confirmed by Maxim Ivory ([id number]) on 01/27/2024 8:47:01 AM Referred By: REFERRED SELF Confirmed By: Maxim Ivory
[2024-01-27] MEDS ORDERED: dilTIAZem HCL 180 MG CAPCR PO SCH (09:00)
[2024-01-27] MEDS: SODIUM CHLORIDE 0.9% 1,000 ML IV SCH (09:00)
[2024-01-27] MEDS: FLUTICASONE/VILANTEROL 200/25MCG 14 PUFFS/INHALER INH SCH (09:14)
[2024-01-27] MEDS: LOSARTAN POTASSIUM 50 MG TAB PO SCH (09:15)
[2024-01-27] MEDS: MELOXICAM 7.5 MG TAB PO SCH (09:16)
[2024-01-27] MEDS: APIXABAN 5 MG TABLET PO SCH (09:17)
[2024-01-27] MEDS: METOPROLOL TARTRATE 50 MG TAB PO SCH (09:17)
--- NOTE | 2024-01-27 10:57 | Hospitalist Progress Note ---
Date of Service January 27, 2024 Assessment & Plan (1) Tachycardia: Plan: History of paroxysmal atrial fibrillation and complete heart block in the past. Permanent pacemaker in place. He sees cardiology at the [facility] and recently had his metoprolol dosage increased. He takes Eliquis on a chronic basis. He denies any chest pain. Case discussed with cardiology currently. Metoprolol dosage will be increased again. Continue telemetry. EP cardiology to assess patient later today. (2) Elevated troponin: Plan: Mild. No acute EKG changes. No chest pain. No evidence of acute coronary syndrome (3) CAD (coronary artery disease): Plan: History of CAD, s/p 3V CABG in 2020. Currently stable. Continue current medical management. Telemetry (4) CHB (complete heart block): Plan: Occurred after coronary artery bypass grafting in 2020 leading to permanent pacemaker insertion. Telemetry (5) Paroxysmal atrial fibrillation: Plan: The patient is chronically on Eliquis. He sees cardiology at the [facility]. Metoprolol dosage was recently increased. Telemetry Plan To be determined Admission and Anticipated Discharge Date Admission Date: January 26, 2024 Subjective Alert and oriented. is at the bedside. Case discussed with cardiology. Metoprolol dosage will be increased. Other medications remain the same. Free T3 and free T4 are ordered and pending. Continue IV fluids for now while n.p.o. Review of Systems 2 Review of Systems: Constitutionalno fever or chills ENTno blurred vision, no double vision, no epistaxis, no sore throat Respiratoryno cough, no wheezing, no shortness of breath Cardiacno palpitations, no chest pain, no syncope Daniel nausea, vomiting, diarrhea, melena, hematochezia GUno urinary retention, no urinary incontinence, no dysuria, no hematuria Musculoskeletalno joint pain, no muscle tenderness Skinno bruising, no rashes, no pruritus Neurono isolated weakness, no paresthesia, no weakness Psychno depression, no anxiety Physical Exam 2 Physical Exam: General-alert and oriented x3, no fever, no chills HEENT-head atraumatic and normocephalic, pupils equal and reactive to light, extraocular muscles intact Neck-no lymphadenopathy or thyromegaly, trachea midline Chest-clear to auscultation. No rales, wheezing or rhonchi Cardiac-slightly irregular tachycardic rate and rhythm, normal S1 and S2 Abdomen-normal bowel sounds, no hepatosplenomegaly Extremities-no cyanosis, clubbing, or edema Neuro-cranial nerves II through XII intact, motor and sensory function within normal limits, strength symmetrical, no focal deficits Psych-normal affect, normal mood Results & Data Results & Data Vital Signs (Past 12 Hours) Vital Signs Temp Pulse Pulse Resp BP BP Pulse Ox 01/27/24 07:06 36.5 C 120 H 18 109/85 96 01/27/24 06:44 118 H 01/27/24 06:41 36.5 C 120 H 20 109/85 97 01/27/24 06:40 120 H 109/85 01/27/24 06:25 119 H 135/83 01/27/24 05:01 36.6 C 116 H 14 136/91 96 01/27/24 04:00 36.5 C 114 H 18 104/81 94 01/27/24 00:39 36.5 C 14 152/94 H 01/27/24 00:37 119 H 01/27/24 00:21 120 H 111/94 01/27/24 00:15 111/94 01/27/24 00:15 111/94 01/27/24 00:01 104/84 01/27/24 00:01 104/84 01/26/24 23:49 121 H 155/126 H 01/26/24 23:48 120 H 25 H 95 01/26/24 23:33 120 H 19 95 01/26/24 23:27 118 H 23 95 01/26/24 23:27 128/103 H 01/26/24 23:27 120 H 128/103 H 01/26/24 23:04 122 H 125/87 01/26/24 23:01 36.6 C 18 93 01/26/24 23:00 125/87 01/26/24 23:00 125/87 01/26/24 23:00 125/87 01/26/24 23:00 122 H 18 93 01/26/24 22:56 138/103 H 01/26/24 22:56 138/103 H 01/26/24 22:56 138/103 H O2 Del Method O2 Flow Rate 01/27/24 07:06 Nasal Cannula 2 01/27/24 06:44 10/15/24 06:41 Room Air 01/27/24 06:40 01/27/24 06:25 01/27/24 05:01 Nasal Cannula 2 01/27/24 04:00 Room Air 01/27/24 00:39 Room Air 01/27/24 00:37 01/27/24 00:21 01/27/24 00:15 01/27/24 00:15 01/27/24 00:01 01/27/24 00:01 01/26/24 23:49 01/26/24 23:48 01/26/24 23:33 01/26/24 23:27 01/26/24 23:27 01/26/24 23:27 01/26/24 23:04 01/26/24 23:01 Room Air 01/26/24 23:00 01/26/24 23:00 01/26/24 23:00 01/26/24 23:00 01/26/24 22:56 01/26/24 22:56 01/26/24 22:56 Laboratory Results 01/27/24 07:15 01/27/24 07:15 PG Care Time/CCT Total # of Minutes Spent Total Time Spent with Patient: Total time spent is greater than 50% in coordination of care (as documented) at patient's floor/unit and/or counseling patient: Coding Level of Care Code 74670 SUB INP/OBS CARE 3/50MIN Diagnoses Tachycardia R00.0 Elevated troponin R79.89 Coronary artery disease involving [place] coronary artery of [place] heart without angina pectoris I25.10 Coronary Disease-Associated Artery/Lesion type: [place] artery [place] vs. transplanted heart: [place] heart Associated angina: without angina CHB (complete heart block) I44.2 Paroxysmal atrial fibrillation I48.0 (3) CAD (coronary artery disease) Coronary Disease-Associated Artery/Lesion type: [place] artery [place] vs. transplanted heart: [place] heart Associated angina: without angina Qualified Code(s): I25.10 - Atherosclerotic heart disease of [place] coronary artery without angina pectoris
--- NOTE | 2024-01-27 11:09 | Cardiology Consultation ---
Date of Consultation January 27, 2024 Assessment & Plan (1) Tachycardia: (2) Paroxysmal atrial tachycardia: (3) Pacemaker: (4) CAD (coronary artery disease): (5) S/P CABG x 3: (6) S/P AVR (aortic valve replacement): (7) S/P aortic aneurysm repair: (8) Chronic anticoagulation: Plan Given past history of atrial dysrhythmias suspect underlying atrial flutter or paroxysmal atrial tachycardia. Although repeat trial of antitachycardia pacing may return his rhythm to normal, the probability of relapse is high given the fact he spontaneously returned to sinus overnight and then relapsed into tachycardia after only 45 minutes. Therefore, we will increase his beta-carmine dose from metoprolol to tartrate 50 mg twice daily to 100 mg twice daily. Given additional 50 mg metoprolol tartrate dose currently (for a total of 100 mg this morning). He is at no risk for bradycardia given pacemaker presence, but will need to monitor for hypotension given multiple vasoactive medications (diltiazem and metoprolol). If he has recurrent dysrhythmia on increased beta-carmine would likely need to initiate antiarrhythmic medication. Also, could consider ablation therapy if medications ineffective. Continue apixaban 5 mg twice daily for chronic anticoagulation. Spoke with Dr. Sewell, he will attempt to return rhythm to sinus through antitachycardia pacing later today (after the patient receives additional beta- carmine therapy). Minor but flat troponin elevation likely minimal demand ischemia, no intervention necessary. Aortic valve functioning appropriately based on auscultation. Will continue to follow from a cardiac perspective while hospitalized, outpatient care is provided by Dr. Santamaria and Dr. Mills. History of Present Illness Reason for Consultation: Tachycardia in pacemaker patient Requesting Physician: Jay Greenberg MD Attending Physician: Jay Greenberg MD History of Present Illness 78-year-old man with history of paroxysmal atrial fibrillation (diltiazem/metoprolol/apixaban) and cardiac surgery (2020) who is status post pacemaker and presents now with persistent tachycardia at 120 bpm. 2020 cardiac surgery: 1. Aortic valve/root replacement ([employer] #25 mm Konect Resilia Aortic Graft/Valve) 2. 3-vessel CABG with WALLACE to LAD, SVG to OM1, SVG to RCA 3. Left atrial appendage clipping 4. 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 His metoprolol was increased from 25 mg twice daily to 50 mg twice daily at that time. He noted cough and congestion for the past week and yesterday morning noted tachypalpitations with heart rate consistently in the 120 bpm range throughout the day. No chest pain, dyspnea, lightheadedness, presyncope, or syncope. ECG on admission and this morning showed ventricular paced rhythm at 119 bpm with suspected underlying atrial flutter. Troponin curve flat in the 48 range x 3 draws. Telemetry overnight showed rate remained in the 120 bpm range, with the exception of around 3 AM when his rhythm returned to sinus before relapsing into tachycardia 45 minutes later. He felt reasonably well this morning, aware of his rapid heart rate but complaining of no other symptoms. Allergies Allergy/AdvReac Type Severity Reaction Status Date / Time atorvastatin [From Lipitor] AdvReac Intermediate Myalgia Verified 01/26/24 23:27 pravastatin [From Pravachol] AdvReac Intermediate Myalgia Verified 01/26/24 2 3:27 rosuvastatin [From Crestor] AdvReac Intermediate Myalgia Verified 01/26/24 23:27 Home Medications Medication Instructions Recorded Confirmed Type diphenhydramine 25 1 tab PO DIRECTED PRN Pain 07/10/22 01/26/24 History mg-acetaminophen 500 mg tablet (Tylenol PM Extra Strength) vit C 250 mg-vit E 90 mg-zinc 40 1 tab PO BID 11/12/22 01/26/24 History mg-copper 1 de-yixczz-vnojje capsule (PreserVision AREDS-2) apixaban 5 mg tablet (Eliquis) 5 mg PO Q12H #180 tabs 07/30/23 01/26/24 Rx losartan 100 mg tablet 100 mg PO QAM #90 tabs 09/15/23 01/26/24 Rx fluticasone furoate 200 1 inh inhalation QAM #60 ea 10/13/23 01/26/24 Rx mcg-vilanterol 25 mcg/dose inhalation powder (Breo Ellipta) meloxicam 7.5 mg tablet 7.5 mg PO QAM #90 tabs 10/13/23 01/26/24 Rx diltiazem HCl 180 mg 180 mg PO QAM #90 caps 10/14/23 01/26/24 Rx capsule,extended release 24 hr metoprolol tartrate 25 mg tablet 50 mg PO BID 01/26/24 01/26/24 History Patient History Medical History (Updated 01/27/24 @ 11:13 by Maxim Ivory MD) Carpal tunnel syndrome COVID-19 Unequal pupils CHB (complete heart block) Aortic stenosis Bicuspid aortic valve History of anesthesia reaction difficulty waking History of kidney stones History of COVID-19 x2--last 2020--mild symptoms, no symptoms now Macular degeneration Transient ischemic attack (TIA) pt states over 20yrs ago--no deficits History of COPD inhaler daily Nephrolithiasis Pulmonary hypertension, moderate to severe Surgical History History of colonoscopy History of esophagogastroduodenoscopy (EGD) History of tooth extraction History of tonsillectomy History of cardiac cath Cardiac catheterization-2013 @ [facility]--no stents placed History of pacemaker Post-Operative CHB s/p [employer] Accolade MRI Dual Chamber Pacemaker 01/17/21 H/O carpal tunnel repair bilateral S/P hernia repair 1964 S/P cystoscopy With insertion of Ureteral Stent-1984 History of back surgery 1989 Hx of abdominal surgery Removal of adhesions on small intestine Family History Father , age 73 Cardiac disorder Myocardial infarction, Onset Age: 68 Hypertension Mother , age 97 Breast cancer, Onset Age: 50 Hypertension Other No family history of adverse response to anesthesia Denies family history of Ovarian cancer Prostate cancer Lung cancer Colorectal cancer Social History Smoking Status: Former smoker Tobacco Type: Cigarettes Age Started Using Tobacco: 16; Second Hand Exposure: No; Do You Dip or Chew Tobacco: No; Tobacco Cessation Education Requested by Patient: No Hx Alcohol Use: Yes Alcohol type: beer Hx Substance Use: No Preferred Language: Turkmen Communication Ability: Effective Visual Impairment: No Limitations Hearing Ability: Normal 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 Beliefs That Will Affect Care: None marital status: Current Living Situation: Spouse current occupational status: retired Other Information That Helps Us Care for You: No Feels Safe at Home: Yes Safety Concerns: Feels Safe At This Time Childhood Exposure to Second-Hand Smoke: No Diet: regular Diet Comment: regular caffeine: Yes during the past year weight has: remained stable Dental Care, Regularly: No Physical Activity Frequency: Daily 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 Afebrile. BP 110/85 mmHg Pulse 120 bpm and regular. Skin: no ecchymoses or generalized lesions. HEENT: unremarkable. Neck: JVP one quarter of the way to the angle of the jaw at 90 degrees, no carotid bruits. Lungs: adilene`ar. Cardiac: regular/tachycardic rhythm, normal S1-2, no murmur. Abdomen: benign. Extremities: no edema, pulses intact. Neurologic: normal affect and conversation, nonfocal. Results & Data Laboratory Results Normal CBC. Normal electrolytes with potassium 4.1 and magnesium 2.3. BUN 20, creatinine 1.23. Troponin 48.3, 47.8, 46.4. Diagnostic Findings ECGs as noted in HPI. Chest x-ray with cardiomegaly, otherwise unremarkable. Head CT unremarkable. PG Care Time/CCT Total # of Minutes Spent Total Time Spent with Patient: Total time spent is greater than 50% in coordination of care (as documented) at patient's floor/unit and/or counseling patient: Coding Level of Care Code 06975 IN/OBS CONSULT LVL 4,60M Diagnoses Tachycardia R00.0 Paroxysmal atrial tachycardia I47.1 Pacemaker Z95.0 Coronary artery disease involving [place] coronary artery of [place] heart without angina pectoris I25.10 Coronary Disease-Associated Artery/Lesion type: [place] artery [place] vs. transplanted heart: [place] heart Associated angina: without angina S/P CABG x 3 Z95.1 S/P AVR (aortic valve replacement) Z95.2 S/P aortic aneurysm repair Z98.890; Z86.79 Chronic anticoagulation Z79.01 (4) CAD (coronary artery disease) Coronary Disease-Associated Artery/Lesion type: [place] artery [place] vs. transplanted heart: [place] heart Associated angina: without angina Qualified Code(s): I25.10 - Atherosclerotic heart disease of [place] coronary artery without angina pectoris
[2024-01-27] MEDS: METOPROLOL TARTRATE 50 MG TAB PO STA (11:26)
--- NOTE | 2024-01-27 17:15 | Cardioversion ---
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 He is known to have complete heart block and a dual-chamber pacemaker. Prior records suggest he had developed an atrial tachycardia with atrial tracking and associated high ventricular rates. Procedure detail The patient's pacemaker was interrogated using a proprietary programmer numerical control. The rhythm was identified as an atrial tachycardia. The pacemaker was used to burst pace the atrium with eventual returned to sinus rhythm. Complete device interrogation including sensing threshold testing of both leads was then performed subsequent to cardioversion. The patient tolerated procedure well. There were no immediate complications. Coding Level of Care Code 02216 CARDIOVERSION, ELECTIVE CPT Codes Dual Lead Pacemaker System - 73387 ([id number]) Additional Codes Electrical Cardioversion Report ([id number])
[2024-01-27] MEDS: METOPROLOL TARTRATE 100 MG TAB PO SCH (19:48)
[2024-01-28 06:20] LABS: Basophils # (auto) 0.05 K/uL (0.00-0.20); Basophils % (auto) 0.6 %; Eosinophils # (auto) 0.15 K/uL (0.00-0.50); Eosinophils % (auto) 1.8 %; Hematocrit (blood only) 43.1 % (42.0-52.0); Hemoglobin 14.2 g/dl (14.0-18.0); Immature Granulocytes # (auto) 0.04 K/uL (0.01-0.20); Immature Granulocytes % (auto) 0.5 %; Lymphocytes # (auto) 1.83 K/uL (1.20-3.40); Lymphocytes % (auto) 21.5 %; Mean Corpuscular Hemoglobin 30.9 pg (25.0-34.0); Mean Corpuscular Hgb Conc 32.9 g/dL (32.0-36.0); Mean Corpuscular Volume 93.9 fL (80.0-100.0); Mean Platelet Volume 9.3 fL (9.4-12.4); Monocytes # (auto) 0.62 K/uL (0.11-0.59); Monocytes % (auto) 7.3 %; Neutrophils # (auto) 5.84 K/uL (1.40-6.50); Neutrophils % (auto) 68.3 %; Platelet Count 183 K/uL (130-400); RDW Coefficient of Variation 13.2 % (11.5-14.5); RDW Standard Deviation 45.3 fL (36.4-46.3); Red Blood Count 4.59 M/uL (4.70-6.10); White Blood Count 8.53 K/ul (4.8-10.8)
[2024-01-28 06:43] LABS: Creatinine Clr Calc Pharmacy 42.8 ml/min; Potassium 4.3 mmol/L (3.5-5.1)
[2024-01-28 07:50] VITALS: BP 164/92; RESP 18; TEMP 98.2; O2SAT 95
[2024-01-28] MEDS: dilTIAZem HCL 180 MG CAPCR PO SCH (08:20)
--- NOTE | 2024-01-28 09:58 | Discharge Summary ---
Discharge Summary Date of Service January 28, 2024 Principal Dx & Hospital Course #1 = Principal Diagnosis (1) Tachycardia: History of paroxysmal atrial fibrillation and complete heart block in the past. Permanent pacemaker in place. He sees cardiology at the [facility] and recently had his metoprolol dosage increased. He takes Eliquis on a chronic basis. He denies any chest pain. Appreciate cardiology consultation and recommendations. He underwent elective cardioversion yesterday, January 26 and remains in normal sinus rhythm. He will continue with metoprolol tartrate 100 mg twice daily going forward. (2) Elevated troponin: Mild. No acute EKG changes. No chest pain. No evidence of acute coronary syndrome (3) CAD (coronary artery disease): History of CAD, s/p 3V CABG in 2020. Currently stable. Continue current medical management. Telemetry (4) CHB (complete heart block): Occurred after coronary artery bypass grafting in 2020 leading to permanent p acemaker insertion. Telemetry (5) Paroxysmal atrial fibrillation: The patient is chronically on Eliquis. He sees cardiology at the [facility]. Metoprolol dosage was recently increased and has been increased again. Telemetry Plan Home today, January 27 Admission HPI Per Admitting Provider Jay Field is a 78yo male with history of bicuspid aortic valve with severe aortic stenosis, moderate CAD s/p graft and valve repair and CABG x 3V performed in 2020. Patient with post-operative complete heart block and atrial fibrillation s/p placement of dual chamber pacer 01/17/21. Patient with frequent atrial tachycardia/atrial fibrillation. He is on Eliquis anticoagulation. He follows at [facility] as well as with [facility]. He was last seen at [facility] on 01/22/24 - noted to be in atrial fibrillati on/flutter. He was to have a cardioversion performed but rather was able to be paced out of his AF. At that time his medication was changed from Metoprolol 25mg po TID to Metoprolol 50mg po BID. He reports compliance with his medications - no missed doses recently. Patient has had some cough and congestion ongoing for the last several days. This morning around 08:00 he felt that his heart was racing and his head felt "funny". He checked his heart rate and it was noted to be 120 - 130's consistently throughout the day. Patient reports similar symptoms occurring approximately one month ago which self-terminated. Patient has had some chills and cough productive for sputum in the morning. Otherwise he denies fever, chest pain, dizziness, syncope/near syncope, edema, orthopnea or weight gain. He denies nausea, vomiting, diarrhea. Does have some abdominal pain mainly in the mornings. Patient additionally reports increased eructation over the last several days. In the ER he is afebrile, tachycardic with HR 120's. Blood pressure has been stable ER Course: Tylenol 1gm Metoprolol 2.5mg IV + 5mg IV NSS x 500mL Discharge Exam General-alert and oriented x3, no fever, no chills HEENT-head atraumatic and normocephalic, pupils equal and reactive to light, extraocular muscles intact Neck-no lymphadenopathy or thyromegaly, trachea midline Chest-clear to auscultation. No rales, wheezing or rhonchi Cardiac-regular rhythm, normal rate, normal S1 and S2 Abdomen-normal bowel sounds, no hepatosplenomegaly Extremities-no cyanosis, clubbing, or edema Neuro-cranial nerves II through XII intact, motor and sensory function within normal limits, strength symmetrical, no focal deficits Psych-normal affect, normal mood Discharge Plan Discharge Items Patient Disposition: Home - Self-Care Reason For Visit: PALPITATIONS, ELEVATED HR Discharge Diagnosis: Paroxysmal atrial tachycardia Condition on Discharge: Good Activity: Resume your previous activity Non-emergency contact: Primary Care Provider and Canopy Stringer Call non-emergency contact if: you have any medication questions and your symptoms worsen Follow-up/Referrals: Levi Carbone CRNP [Primary Care Provider] - Diet: Regular and Heart Healthy Addtl Attending Provider Instructions: Metoprolol dosage has been increased to 100 mg twice daily. A prescription has been sent to [facility] in [place]. Pending Studies at Discharge: No Stand-Alone Forms: My [facility], Smoking Cessation Medications and DC Order Prescriptions: New metoprolol tartrate 100 mg Tablet 100 mg PO BID Qty: 60 0RF Continued losartan 100 mg tablet 100 mg PO QAM Qty: 90 3RF meloxicam 7.5 mg tablet 7.5 mg PO QAM Qty: 90 1RF fluticasone furoate-vilanterol [Breo Ellipta] 200-25 mcg/dose blister with device 1 inh INHALATION QAM Qty: 60 2RF diltiazem HCl 180 mg capsule,extended release 24hr 180 mg PO QAM Qty: 90 3RF Eliquis 5 mg tablet 5 mg PO Q12H Qty: 180 3RF diphenhydramine-acetaminophen [Tylenol PM Extra Strength] 25-500 mg Tablet 1 tab PO DIRECTED PRN (Reason: Pain) PreserVision AREDS-2 250-90-40-1 mg Capsule 1 tab PO BID Discontinued metoprolol tartrate 25 mg tablet 50 mg PO BID Discharge Orders: Discharge Order (Routine); Ordered 01/28/24 Ordered By: Jay Greenberg Admission Data Admit Date/Time: 01/27/24 17:11 Attending Provider: Jay Greenberg Admit Provider: Jay Greenberg Primary Care Provider: Levi Carbone Other Providers: Twila Griffith; Garcia Rosa Hospital Stay Data Consultations 01/26/24 23:18 ED Decision to Admit Stat 01/27/24 00:31 Consult Cardiology Routine Pending Results Patient Have Any Pending Studies at Discharge: No Discharge Instructions Given to Patient (Per Discharging Provider) Metoprolol dosage has been increased to 100 mg twice daily. A prescription has been sent to [facility] in [place]. Total Time Total Time Spent Total Time Spent (In Minutes): 45 minutes Coding Level of Care Code 98643 INP/OBS DISCH >30 MIN Diagnoses Tachycardia R00.0 Elevated troponin R79.89 Coronary artery disease involving [place] coronary artery of [place] heart without angina pectoris I25.10 Coronary Disease-Associated Artery/Lesion type: [place] artery [place] vs. transplanted heart: [place] heart Associated angina: without angina CHB (complete heart block) I44.2 Paroxysmal atrial fibrillation I48.0
[2024-01-28 10:25] VITALS: PULSE 76
[2024-01-28] MEDS: PNEUMOCOCCAL VACCINE (PCV20) 20-VAL CONJ-DIP CRM/PF 0.5 ML SYR IM ONE (11:48)
[2024-01-28] MEDS: INFLUENZA VACC TS2024-25(65y+)/PF (IIV3) 0.5mL Syr IM ONE (11:48)
== END 2024-01-28 11:21 | disposition home or self-care (01) | DRG 309 ==
LOC: ED 21:39 → 2N 21:39 → SUATTDRO 23:26 → 2N 01-27 00:11 → 2S 01-27 06:36